=== PATIENT | female | born 1960 | race Caucasian/White ===

== ENCOUNTER 2022-12-05 12:49 | Outpatient (OUT) | payer OTHER, SELFPAY ==
--- NOTE | 2022-12-05 13:00 | MM_ITS ---
Patient: STEPH MCBRIDE Exam Date: 12/05/2022 : 1960 Gender:F Ordering : Non-Staff Physician Admission #: [id number] Family : CATRACHO YANG Order #: [id number] CLICK HERE TO VIEW EXAM RADIOLOGY REPORT PROCEDURE: MM TOMOSYNTHESIS SCREENING BI COMPARISON: MG MAMM SCREEN 3D LISA CAD, 11/15/2016. MG MAMM SCREEN 3D LISA CAD, 10/19/2021. INDICATIONS: Screening for malignant neoplasm Calculator Name NCI Breast Cancer Risk Assessment Tool 5 Year Breast Cancer Risk Not Reported. Lifetime Breast Cancer Risk Not Reported. Personal Breast Cancer No Personal Ovarian Cancer No Treatments None Family Cancers None LOCATION: [facility] BREAST COMPOSITION: Scattered areas fibroglandular density. FINDINGS: DIAGNOSTIC CATEGORY 2--BENIGN FINDING. NO CHANGE FROM COMPARISON. Scattered benign-appearing nodules are present. Scattered benign-appearing calcifications are present. Scattered benign-appearing lymph nodes are present. RIGHT BREAST: No significant suspicious finding. Stable nodular asymmetry upper outer quadrant. LEFT BREAST: No significant suspicious finding. RECOMMENDATIONS: ROUTINE MAMMOGRAM AND CLINICAL EVALUATION IN 12 MONTHS. PLEASE NOTE: A NORMAL MAMMOGRAM DOES NOT EXCLUDE THE POSSIBILITY OF BREAST CANCER. A CLINICALLY SUSPICIOUS PALPABLE LUMP SHOULD BE BIOPSIED. Dictated by: Alonso Avila MD on 12/06/2022 at 09:24 Approved by: Alonso Avila MD on 12/06/2022 at 09:29
== END 2022-12-05 12:50 | disposition home or self-care (01) ==
LOC: MAMMO 12:49
PROVIDERS: Visit Provider Nurse Practitioner Family
DX: Z12.31 Encounter for screening mammogram for malignant neoplasm of breast (principal)
CPT/HCPCS: 77063; 77067

== ENCOUNTER 2023-05-20 11:27 | Outpatient (OUT) | payer MEDICARE, SELFPAY ==
[2023-05-20 11:48] LABS: Basophils Absolute Auto 0.1 10^3/uL (0.0-0.1); Basophils Percent Auto 0.6 % (0.2-2.0); Eosinophils Absolute Auto 0.2 10^3/uL (0.0-0.7); Eosinophils Percent Auto 1.9 % (0.9-7.0); Hematocrit 47.9 % (36.0-48.0); Immature Granulocytes Abs Auto 0.07 10^3/uL (0.00-0.03); Immature Granulocytes Pct Auto 0.7 % (0.0-0.5); Lymphocytes Absolute Auto 2.5 10^3/uL (1.2-3.8); Lymphocytes Percent Auto 24.5 % (20.5-60.0); Mean Corpuscular HGB Conc 31.3 g/dL (29.9-35.2); Mean Corpuscular Hemoglobin 29.1 pg (26.7-34.0); Mean Platelet Volume 9.9 fL (9.5-13.5); Monocytes Absolute Auto 0.7 10^3/uL (0.3-0.8); Monocytes Percent Auto 6.6 % (1.7-12.0); Neutrophils Absolute Auto 6.6 10^3/uL (1.4-6.5); Neutrophils Percent Auto 65.7 % (43.0-75.0); Platelet Count 347 10^3/uL (150-450); Red Blood Count 5.15 10^6/uL (4.20-5.40); Red Cell Distribution Width 13.3 % (11.0-15.0); White Blood Count 10.1 10^3/uL (4.0-11.0)
[2023-05-20 13:12] LABS: Alanine Aminotransferase 26 U/L (14-59); Albumin Globulin Ratio 0.7; Albumin Level 3.4 g/dL (3.4-5.0); Alkaline Phosphatase 132 U/L (46-116); Anion Gap 12.3; Aspartate Amino Transferase 22 U/L (15-37); BUN Creatinine Ratio 16.8; Bilirubin Total 0.3 mg/dL (0.2-1.0); Calcium 8.9 mg/dL (8.5-10.1); Carbon Dioxide 25.4 mmol/L (21.0-32.0); Chloride 104 mmol/L (98-107); Chol HDL Ratio 3.9; Cholesterol 224 mg/dL (<=200); Estimated GFR (African America 55 (>=60); Estimated GFR (Non-African Ame 46 (>=60); Glucose 89 mg/dL (74-106); HDL Cholesterol 57 mg/dL (40-60); Potassium 3.7 mmol/L (3.5-5.1); Sodium 138 mmol/L (136-145); Thyroid Stimulating Hormone 0.738 uIU/mL (0.358-3.740); Total Protein 8.4 g/dL (6.4-8.2); Triglycerides 166 mg/dL (<=150); VLDL CHOLESTEROL 33.2 mg/dL
[2023-05-21 13:08] LABS: Triiodothyronine (T3) 113 ng/dL (71-180)
== END 2023-05-20 11:28 | disposition home or self-care (01) ==
LOC: LAB 11:31
PROVIDERS: PCP Nurse Practitioner Family; Visit Provider Nurse Practitioner Family
DX: Z00.00 Encounter for general adult medical examination without abnormal findings (principal); E03.9 Hypothyroidism, unspecified; E78.5 Hyperlipidemia, unspecified
CPT/HCPCS: 36415; 80053; 80061; 84436; 84443; 84480; 85025

== ENCOUNTER 2024-08-16 14:00 | Emergency (ER) | payer OTHER, SELFPAY ==
[2024-08-16 14:05] VITALS: BP 146/73; PULSE 78; TEMP 36.3; O2SAT 98; BMI 56.7
--- NOTE | 2024-08-16 14:23 | ED_ITS ---
HPI HPI - General Adult General Chief complaint: Ear Stated complaint: EAR PAIN AND CLOGGED UP Time Seen by Provider: 08/16/24 14:09 Source: patient and family Mode of arrival: walk-in Limitations: no limitations History of Present Illness HPI narrative: 64-year-old female presents to the emergency department for both ears being plugged. She thinks there might be too much wax in it and it has been like this for a week or 2 and getting somewhat worse. No drainage or fever. Related Data Allergies Allergy/AdvReac Type Severity Reaction Status Date / Time No Known Drug Allergies Allergy Verified 08/16/24 14:05 Opioid HPI Opioid Management Most Recent Opioid Data: No Data to Display Review of Systems ROS Narrative A ten point review of systems is negative except as noted above. PFSH PFSH Social History Little interest or pleasure in doing things: not at all Feeling down, depressed, or hopeless: not at all Exam Narrative Exam Narrative: Nurses note and vital signs reviewed and patient is not hypoxic. General: The patient appears well and in no apparent distress. Patient is resting comfortably on cart. Skin: Warm, dry, no pallor noted. There is no rash noted. Head: Normocephalic, atraumatic Eye: Normal conjunctiva, no drainage Ears, Nose, Mouth, and Throat: oral mucosa is moist. Nares patent. Both external canals have large amount of cerumen, obscuring the TM. Cardiovascular: Regular Rate and Rhythm Respiratory: Patient is in no distress, no accessory muscle use, lungs are clear to auscultation, no wheezing, rales or rhonchi Back: non-tender GI: Soft and nontender Musculoskeletal: The patient has no evidence of calf tenderness, no pitting edema, symmetrical pulses noted bilaterally Neurological: A&O, normal speech Psychiatric: Cooperative Constitutional Vital Signs, click to edit/add: Last Vital Signs Temp 97.4 F L 08/16/24 14:05 Pulse 78 08/16/24 14:05 Resp 18 08/16/24 14:05 BP 146/73 H 08/16/24 14:05 Pulse Ox 98 08/16/24 14:05 O2 Del Method Room Air 08/16/24 14:05 Course Vital Signs Vital signs: Vital Signs Temperature 97.4 F L 08/16/24 14:05 Pulse Rate 78 08/16/24 14:05 Respiratory Rate 18 08/16/24 14:05 Blood Pressure 146/73 H 08/16/24 14:05 Pulse Oximetry 98 08/16/24 14:05 Oxygen Delivery Method Room Air 08/16/24 14:05 Temperature 97.4 F L 08/16/24 14:05 Pulse Rate 78 08/16/24 14:05 Respiratory Rate 18 08/16/24 14:05 Blood Pressure 146/73 H 08/16/24 14:05 Pulse Oximetry 98 08/16/24 14:05 Oxygen Delivery Method Room Air 08/16/24 14:05 Medical Decision Making MDM Narrative Medical decision making narrative: Her ears have both been irrigated by nursing staff with good removal of cerumen. Repeat examination shows bilateral swelling in the external canal as well as a small amount of drainage and erythema. At this point she will be treated for otitis externa with Cortisporin. Treatment diagnosis and follow-up were discussed with the patient. Differential Diagnosis Differential Diagnosis: Cerumen impaction, otitis externa Discharge Plan Discharge Chief Complaint: Ear Clinical Impression: Bilateral impacted cerumen, Otitis externa Patient Disposition: Home, Self-Care Time of Disposition Decision: 15:26 Condition: Good Mode of Transportation: Private Vehicle Print Language: Romanian Instructions: Swimmer's Ear (ED) Additional Instructions: Prescription given for Cortisporin Referrals: IVETTE MAN [Primary Care Provider] - 1 week
--- OUTSIDE RECORDS SUMMARY | 2024-08-16 14:34 | XMS_ITS | CCD ---
Author Organization [facility] Care Team Providers Care Commercial Lending Assistant Name Role Phone MaryNaila roqueBlair Unavailable Mirian Ragsdale Unavailable SELF, REFERRED Referring Unavailable SELF, REFERRED Primary Care Unavailable LEILA LAZARO Attending Unavailable LEILA ALZARO Admitting Unavailable LEILA LAZARO Surgeon Unavailable [place] Procedure Practitioner Unavailab DORY Luna Attending Unavailable DORY SILVA Admitting Unavailable MISC, DR LUNA Primary Care Unavailable MISC, DR LUNA Admitting Unavailable MISC, DR LUNA Attending Unavailable MISC, DR LUNA Primary Care Unavailable MISC, DR LUNA Primary Care Unavailable REINECK, DR AP Dodge Attending Unavailabl e REINECK, DR AP Dodge Consulting Unavailabl e REINECK, DR AP Dodge Admitting Unavailabl e WEST, JOHNNY Rodgers Consulting Unavailable DORY SILVA Attending Unavailable DORY SILVA Admitting Unavailable MISC, DR LUNA Primary Care Unavailable ZIEBER, DR NIKI Andrea Consulting Unavailable SHIRADORY WAGNER Consulting Unavailable MISC, DR LUNA Admitting Unavailable MISC, DR LUNA Attending Unavailable MISC, DR LUNA Primary Care Unavailable SCHWRICARDO MIRIAN Consulting Unavailable IVETTE MAN Attending Unavailable IVETTE MAN Admitting Unavailable MAGDAIVETTE MICHEL Attending Unavailable IVETTE MAN Admitting Unavailable MAGDA, IVETTE Attending Unavailable IVETTE MAN Admitting Unavailable IVETTE MAN Attending Unavailable IVETTE MAN Admitting Unavailable Schwricardo TERRY Mirian Primary Care Provider DORY MARIN Attending Unavailable TJ BRAUN Attending Unavailable DORY MARIN Referring Unavailable DORY MARIN Attending Unavailable TJ BRAUN Attending Unavailable DORY MARIN Referring Unavailable JAUN BURNETT Attending Unavailable TJ BRAUN Attending Unavailable IVETTE MAN Attending Unavailable MAGDA, IVETTE Admitting Unavailable MAGDA, IVETTE Attending Unavailable MAGDA, IVETTE Admitting Unavailable MAGDA, IVETTE Attending Unavailable MAGDA, IVETTE Admitting Unavailable MAGDA, IVETTE Attending Unavailable MAGDA, IVETTE Admitting Unavailable Allergies Allergy Classification Reported Allergen(s) Allergy Type Date of Onset Reaction(s) Facility (9 sources) Lisinopril Drug Allergy angioedema [employer] Other Medications Current Medications Medication Drug Class(es) Dates Sig (Normalized) Sig (Original) [id number] 200 actuat albuterol 0.09 mg/actuat metered dose inhaler (20 sources) beta2-Adrenergic Agonist take 2 puff(s) by inhalation every four hours for wheezing albuterol HFA 90 mcg/act inhaler Inhale 2 puffs every 4 (four) hours if needed for wheezing Active take 2 puff(s) by in halation every four hours as needed Ventolin HFA 108 (90 Base) MCG/ACT 2 puffs as needed Inhalation every 4 hrs for 30 day(s) PRN Active amLODIPine 10 mg oral tablet (9 sources) Dihydropyridine Calcium Channel Nicole take 1 tablet by mouth once daily amLODIPine Besylate 10 MG TAKE 1 TABLET BY MOUTH EVERY DAY Orally for 90 days Active atomoxetine 100 mg oral capsule (16 sources) Norepinephrine Reuptake Inhibitor take 1 capsule by mouth twice daily Atomoxetine HCl 40 MG TAKE 1 CAPSULE BY MOUTH TWICE A DAY for 30 Not-Taking take 1 capsule by [facility] every twenty-four hours Atomoxetine HCl 100 MG 1 capsule in the morning Orally Once a day for 30 days Active Atomoxetine HCl 80 MG TAKE 1 CAPSULE BY MOUTH EVERY DAY IN THE MORNING FOR 30 DAYS for 90 Active atorvastatin 20 mg oral tablet (20 sources) HMG-CoA Reductase Inhibitor take 1 tablet by mouth once daily atorvastatin (Lipitor) 20 MG tablet Take 20 mg by mouth Daily Active Centrum Adults - (9 sources) Centrum Adults - as directed Orally Active esomeprazole 40 mg delayed release oral capsule (12 sources) Proton Pump Inhibitor take 1 capsule by mouth before mealtime esomeprazole (NexIUM) [address] capsule Take 40 mg by mouth in the morning. Take before meals. Do not open capsule. 1 capsule. Active fluticasone propionate 0.05 mg/actuat metered dose nasal spray (9 sources) Corticosteroid Start : 01-31 take 1 spray(s) nasal route once daily as needed Flonase Allergy Relief 50 MCG/ACT 1 spray in each nostril Nasally Once a day for 30 day(s) PRN Jan, Active hydroCHLOROthiazide 25 mg oral tablet (12 sources) Thiazide Diuretic take 1 tablet by mouth once daily hydroCHLOROthiazide (HYDRODiuril) 25 MG tablet Take 25 mg by mouth Daily Active hydroCHLOROthiazide 25 mg / triamterene 37.5 mg oral tablet (9 sources) Potassium-sparing Diuretic, Thiazide Diuretic take 1 tablet by mouth every twenty-four hours Triamterene-HCTZ 37.5-25 MG 1 tablet in the morning Orally Once a day for 90 days Active levothyroxine sodium 0.088 mg oral capsule (20 sources) l-Thyroxine take 1 capsule by mouth before mealtime levothyroxine (Tirosint) 88 MCG capsule Take 88 mcg by mouth in the morning. Take before meals. Active take 1 tablet by abe once daily in the morning Levothyroxine Sodium 125 MCG 1 tablet on an empty stomach in the morning Orally Once a day for 90 days Active linaclotide 0.072 mg oral capsule (12 sources) Guanylate Cyclase-C Agonist take 1 capsule by mouth once daily before mealtime linaCLOtide (Linzess) 72 MCG capsule Take 72 mcg by mouth in the morning. Take before meals. Do not crush or chew. 1 capsule at least 30 minutes before the first meal of the day on an empty stomach . Active lisinopril 5 mg oral tablet (9 sources) Angiotensin Converting Enzyme Inhibitor take 1 tablet by mouth every twenty-four hours Lisinopril 5 MG 1 tablet Orally Once a day for 90 days Active meclizine hydrochloride 12.5 mg oral tablet (20 sources) Antiemetic take 1 tablet by mouth three times daily as needed for dizziness meclizine (Antivert) 12.5 MG tablet Take 12.5 mg by mouth 3 (three) times a day as needed for dizziness Active take 2 tablets by mo [facility] every six hours as needed Meclizine HCl 12.5 mg 2 tablets Orally q6hrs PRN vertigo for 90 days PRN Active meloxicam 15 mg oral tablet (12 sources) Nonsteroidal Anti-inflammatory Drug Start: 11-07-2023 take 1 tablet by mouth once daily meloxicam (Mobic) 15 MG tablet Indications: Lumbar radiculopathy TAKE 1 TABLET BY MOUTH EVERY DAY 30 tablet 2 11/07/2023 Active OXcarbazepine 300 mg oral tablet (14 sources) Anti-epileptic Agent Start: 04-09-2024 End: 04-09-2025 OXcarbazepine (Trileptal) 300 MG tablet Indications: Nonintractable headache, unspecified chronicity pattern, unspecified headache type Take 1 tablet (300 mg) by mouth in the morning and 1 tablet (300 mg) before bedtime. TAKE 1 TABLET. 180 tablet 3 04/09/2024 04/09/2025 Active take 1 tablet by mouth in the mo rning OXcarbazepine (Trileptal) 300 MG tablet Take 300 mg by mouth in the morning and 300 mg before bedtime. TAKE 1 TABLET. Active pantoprazole 40 mg delayed release oral tablet (9 sources) Proton Pump Inhibitor take 1 tablet by mouth once daily Pantoprazole Sodium 40 MG TAKE 1 TABLET BY MOUTH EVERY DAY for 90 Active polysaccharide iron complex 150 mg oral capsule (9 sources) take 1 capsule by mouth every twenty-four hours Ferrex 150 150 MG 1 capsule Orally Once a day for 90 days Active rOPINIRole 0.25 mg oral tablet (9 sources) Nonergot Dopamine Agonist Start: 09-13-19 22 take 1 tablet by mouth once daily at bedtime rOPINIRole HCl 0.25 MG 1 tablet 1 to 3 hours before bedtime Orally Once a day for 30 day(s) Sep, Active tiZANidine 4 mg oral tablet (20 sources) Central alpha-2 Adrenergic Agonist Start: 05-13-20 24 take 0.5-1 tablets by mouth once daily in the morning, then take 1-0.5 tablets by mouth at bedtime tiZANidine (Zanaflex) 4 MG tablet Indications: Lumbar radiculopathy TAKE 1/2 TO 1 TABLET BY MOUTH EVERY MORNING & TAKE 1 & 1/2 TO 2 TABS AT BEDTIME 270 tablet 1 05/13/2024 Active Start: 11-18-2023 End: 04-09-2024 take 1 tablet by mouth in the morning tiZANidine (Zanaflex) 4 MG tablet Indications: Lumbar radiculopathy Take 1 tablet (4 mg) by mouth in the morning and 1 tablet (4 mg) before bedtime. 270 tablet 3 04/09/2024 Active Start: 02-12-2018 take 1 tablet by abe th every twelve hours tiZANidine HCl 4 MG 1 tablet as needed Orally BID for 30 days Feb, Active End: 04-09-2024 take 0.5-1 tablets by mouth once daily in the morning, then take 1-0.5 tablets by mouth at bedtime tiZANidine (Zanaflex) 4 MG capsule Take 4 mg by mouth Daily TAKE 1/2 TO 1 TABLET BY MOUTH EVERY MORNING & TAKE 1 & 1/2 TO 2 TABS AT BEDTIME 04/09/2024 Discontinued (Duplicate order) topiramate 50 mg oral tablet (20 sources) Start: 10-14-2023 End: 04-09-2024 take 2 tablets by mouth twice daily topiramate (Topamax) 25 MG tablet Indications: Migraine without status migrainosus, not intractable, unspecified migraine type (CMS/HCC) TAKE 2 TABLETS BY MOUTH TWICE A DAY 360 tablet 1 10/14/2023 04/09/2024 Discontinued (Duplicate order) Start: 09-24-2023 End: 04-09-2025 take 1 tablet by mouth in the morning topiramate 50 MG tablet Indications: Nonintractable headache, unspecified chronicity pattern, unspecified headache type Take 1 tablet by mouth in the morning and 1 tablet before bedtime. 180 tablet 3 04/09/2024 04/09/2025 Active take 1 tablet by abe th every twenty-four hours Topamax 25 MG 1 tablet Orally Once a day Active traZODone hydrochloride 100 mg oral tablet (20 sources) Serotonin Reuptake Inhibitor take 1 tablet by mouth at bedtime traZODone (Desyrel) 100 MG tablet Take 100 mg by mouth at bedtime Active take 1 tablet by abe th every twenty-four hours traZODone HCl 150 MG 1 tablet at bedtime Orally Once a day for 30 day(s) Active Vitamin B 12 500 MCG (9 sources) Vitamin B 12 500 MCG 1 lozenge Orally Once a day for 90 days Active Vitamin C 500 MG (9 sources) take 1 tablet by abe th once daily Vitamin C 500 MG 1 tablet Orally Once a day for 90 days Active Completed/Discontinued Medications Medication Drug Class(es) Dates Sig (Normalized) Sig (Original) bupivacaine hydrochloride 2.5 mg/ml injectable solution (12 sources) Amide Local Anesthetic Start: 05-19-2024 End: 05-19-2024 bupivacaine (Marcaine) 0.25 % injection 2.5 mg Start: 05-19-2024 End: 05-19-2024 bupivacaine (Marcaine) 0.25 % injection 2.5 mg Start: 05-19-2024 End: 05-19-2024 2.5 mg (1 mL), Injection, On ce, On Sat05/19/24 at 1545, For 1 dose Start: 05-19-2024 End: 05-19-2024 2.5 mg (1 mL), Injection, On ce, On Sat05/19/24 at 1545, For 1 dose Start: 02-26-2024 End: 02-26-2024 bupivacaine (Marcaine) 0.25 % injection 2.5 mg Start: 02-26-2024 End: 02-26-2024 bupivacaine (Marcaine) 0.25 % injection 2.5 mg Start: 02-26-2024 End: 02-26-2024 2.5 mg (1 mL), Injection, On ce, On Sat02/26/24 at 1430, For 1 dose Start: 02-26-2024 End: 02-26-2024 2.5 mg (1 mL), Injection, On ce, On Sat02/26/24 at 1430, For 1 dose Start: 02-13-2024 End: 02-13-2024 bupivacaine (Marcaine) 0.25 % injection 6 mL Start: 02-13-2024 End: 02-13-2024 6 mL, Injection, Once PRN Pr ocedure, Starting on Sat02/13/24 at 1430, For 1 dose dexamethasone phosphate 10 mg/ml injectable solution (8 sources) Corticosteroid Start: 05-19-2024 End: 05-19-2024 dexAMETHasone sod phos (Decadron) injection 10 mg Start: 05-19-2024 End: 05-19-2024 10 mg (1 mL), Injection, Onc e, On Sat05/19/24 at 1545, For 1 dose Start: 02-26-2024 End: 02-26-2024 dexAMETHasone sod phos (Deca dron) injection 10 mg Start: 02-26-2024 End: 02-26-2024 dexAMETHasone sod phos (Deca dron) injection 10 mg Start: 02-26-2024 End: 02-26-2024 10 mg (1 mL), Injection, Onc e, On Sat02/26/24 at 1430, For 1 dose Start: 02-26-2024 End: 02-26-2024 10 mg (1 mL), Injection, Onc e, On Sat02/26/24 at 1430, For 1 dose iohexol (OMNIPaque) 300 MG/M L injection 2 mL (8 sources) Start: 05-19-2024 End: 05-19-2024 iohexol (OMNIPaque) 300 MG/M L injection 2 mL Start: 05-19-2024 End: 05-19-2024 2 mL, Injection, Once in krish ging, Starting on Sat05/19/24 at 1542, For 1 dose Start: 02-26-2024 End: 02-26-2024 iohexol (OMNIPaque) 300 MG/M L injection 2 mL Start: 02-26-2024 End: 02-26-2024 2 mL, Injection, Once in krish ging, Starting on Sat02/26/24 at 1424, For 1 dose MiraLax 17 GM/SCOOP (9 sources) Start: 09-12-2021 take 17 g by mouth once daily MiraLax 17 GM/SCOOP 17 gm Orally Once a day for 30 day(s) Sep, Not-Taking Start: 09-12-2021 take 17 g by mouth once daily MiraLax 17 GM/SCOOP 17 gm Orally Once a day for 30 day(s) Sep, Active PrePLUS 27-1 MG (9 sources) take 1 tablet by abe th once daily PrePLUS 27-1 MG 1 tablet Orally Once a day Not-Taking take 1 tablet by mouth once chaparrita y PrePLUS 27-1 MG 1 tablet Orally Once a day Active Problems Active Problems Problem Classification Problem Date Documented Da te Episodic/Chronic Asthma (9 sources) Exacerbation of intermittent asthma; Translations: [Mild intermittent asthma with (acute) exacerbation] Chronic Attention-deficit, conduct, and disruptive behavior disorders (9 sources) Attention deficit hyperactivity disorder; Translations: [Attention-deficit hyperactivity disorder, unspecified type] Chronic Attention-deficit, conduct, and disruptive behavior disorders (2 sources) Attention-deficit hyperactivity disorder, unspecified type Onset: 2 Resolved: 2 Chronic Deficiency and other anemia (9 sources) Anemia due to chronic blood loss; Translations: [Iron deficiency anemia secondary to blood loss (chronic)] Chronic Disorders of lipid metabolism (11 sources) Mixed hyperlipidemia; Translations: [Mixed hyperlipidemia] Onset: 2 Resolved: 2 Chronic Esophageal disorders (18 sources) Gastroesophageal reflux disease; Translations: [Gastro-esophageal reflux disease without esophagitis] Chronic Essential hypertension (20 sources) Hypertensive disorder; Translations: [Essential (primary) hypertension] Onset: 2 Resolved: 2 Chronic Headache; including migraine (14 sources) Tension-type headache; Translations: [Tension-type headache, unspecified, not intractable] Onset: 4 09-23-2023 Chronic Headache; including migraine (2 sources) Headache; Translations: [Nonintractable headache, unspecified chronicity pattern, unspecified headache type] 04-09-2024 Episodic Malaise and fatigue (9 sources) Fatigue; Translations: [Chronic fatigue, unspecified] Chronic Mood disorders (9 sources) Moderate recurrent major depression; Translations: [Major depressive disorder, recurrent, moderate] Chronic Nausea and vomiting (9 sources) Regurgitation; Translations: [Vomiting, unspecified] Episodic Nutritional deficiencies (9 sources) Vitamin D deficiency; Translations: [Vitamin D deficiency, unspecified] Chronic Other connective tissue disease (9 sources) Fibromyalgia; Translations: [Fibromyalgia] Episodic Other gastrointestinal disorders (9 sources) Chronic idiopathic constipation; Translations: [Chronic idiopathic constipation] Chronic Other gastrointestinal disorders (9 sources) Constipation; Translations: [Constipation, unspecified] Episodic Other gastrointestinal disorders (9 sources) Dysphagia; Translations: [Dysphagia, unspecified] Episodic Other hereditary and degenerative nervous system conditions (20 sources) Restless legs; Translations: [Restless legs syndrome] Onset: 4 09-23-2023 Chronic Other hereditary and degenerative nervous system conditions (1 source) Restless legs syndrome; Translations: [RESTLESS LEGS SYNDROME] Onset: 2 Chronic Other nervous system disorders (9 sources) Peripheral nerve disease ; Translations: [Polyneuropathy, unspecified] Chronic Spondylosis; intervertebral disc disorders; other back problems (20 sources) Lumbar spondylosis; Translations: [Spondylosis without myelopathy or radiculopathy, lumbar region] Onset: 2 Resolved: 2 Chronic Spondylosis; intervertebral disc disorders; other back problems (20 sources) Radiculopathy, cervical region; Translations: [Neck pain] Onset: 2 Episodic Thyroid disorders (20 sources) Acquired hypothyroidism; Translations: [Hypothyroidism, unspecified] Onset: 2 Chronic Unclassified (2 sources) LOW BACK PAIN, UNSPECIFIED; Translations: [LOW BACK PAIN, UNSPECIFIED] Onset: 2 Past or Other Problems Problem Classification Problem Date Documented Da te Episodic/Chronic Other injuries and conditions due to external causes (1 source) History of falling; Translations: [HISTORY OF FALLING] Onset: 12-12-2021 Episodic Other screening for suspected conditions (not mental disorders or infectious disease) (1 source) Encounter for screening mammogram for malignant neoplasm of breast Onset: 09-21-2021 Resolved: 09-21-2021 Episodic Unclassified (1 source) LOW BACK PAIN, UNSPECIFIED; Translations: [LOW BACK PAIN, UNSPECIFIED] Onset: 12-07-2021 Results Test Name Value Interpretation Reference Range Facility CBC w/ Auto Diffon 5 Basophils/100 WBC (Bld) 0.8 % Normal 0.0-2.0 [facility] Comment on above: Performed By: #### 2 [id number] #### [facility] [address] [place] [address] Basophils/Leukocy ana maria Auto (Bld) [Pure # fraction] 0.1 E9/L Normal 0.0-0.2 [facility] Comment on above: Performed By: #### 2 [id number] #### [facility] [address] [place] [address] Eosinophils (Bld) [#/Vol] 0.4 E9/L Normal 0.0-0.5 [facility] Comment on above: Performed By: #### 2 [id number] #### [facility] [address] [place] [address] Eosinophils/100 WBC (Bld) 2.5 % Normal 0.0-8.0 [facility] Comment on above: Performed By: #### 2 [id number] #### [facility] [address] [place] [address] Erythrocyte distribution width (RBC) [Ratio] 13.6 % Normal 10.9-14.2 [facility] Comment on above: Performed By: #### 2 [id number] #### [facility] [address] [place] [address] Hematocrit (Bld) [Volume fraction] 48.2 % High 34.0-46.0 [facility] Comment on above: Performed By: #### 2 [id number] #### [facility] [address] [place] [address] Hemoglobin (Bld) [Mass/Vol] 15.9 g/dL Normal 12.0-16.0 [facility] Comment on above: Performed By: #### 2 [id number] #### [facility] [address] [place] [address] Lymphocytes (Bld) [#/Vol] 2.9 E9/L Normal 1.0-4.0 [facility] Comment on above: Performed By: #### 2 [id number] #### [facility] [address] [place] [address] Lymphocytes/100 WBC (Bld) 19.7 % Normal 14.0-50.0 [facility] Comment on above: Performed By: #### 2 [id number] #### [facility] [address] [place] [address] MCH (RBC) [Entitic mass] 29.6 pg Normal 27.0-34.0 [facility] Comment on above: Performed By: #### 2 [id number] #### [facility] [address] [place] [address] MCHC (RBC) [Mass/Vol] 33.0 g/dL Normal 31.4-36.0 [facility] Comment on above: Performed By: #### 2 [id number] #### [facility] [address] [place] [address] MCV (RBC) [Entitic vol] 89.5 fL Normal 80.0-100.0 [facility] Comment on above: Performed By: #### 2 [id number] #### [facility] [address] [place] [address] Monocytes (Bld) [#/Vol] 1.1 E9/L High 0.2-1.0 [facility] Comment on above: Performed By: #### 2 [id number] #### [facility] [address] [place] [address] Neutrophils (Bld) [#/Vol] 10.3 E9/L High 2.0-7.5 [facility] Comment on above: Performed By: #### 2 [id number] #### [facility] [address] [place] [address] Neutrophils/100 WBC (Bld) 69.7 % Normal 36.0-75.0 [facility] Comment on above: Performed By: #### 2 [id number] #### [facility] [address] [place] [address] Platelet 377.0 E9/L Normal 150.0-500.0 [facility] Comment on above: Performed By: #### 2 [id number] #### [facility] [address] [place] [address] Platelet mean volume (Bld) [Entitic vol] 9.3 fL Normal 6.4-10.8 [facility] Comment on above: Performed By: #### 2 [id number] #### [facility] [address] [place] [address] RBC (Bld) [#/Vol] 5.4 E12/L Normal 4.3-5.9 [facility] Comment on above: Performed By: #### 2 [id number] #### [facility] [address] [place] [address] WBC corrected for nucl RBC Auto (Bld) [#/Vol] 14.8 E9/L High 4.0-11.0 [facility] Comment on above: Performed By: #### 2 [id number] #### [facility] [address] [place] [address] T3 Totalon 05-30-2024 T3 [Mass/Vol] 118 ng/dL Invalid Interpretation Code [id number] [facility] Comment on above: Result Comment: Perf ormed at: [facility] [address] [id number] PhD Erik Ray Performed By: #### 1 [id number] #### [facility] [address] [place] [address] CBC w/ Auto Diffon 4 Basophils/100 WBC (Bld) 0.6 % Normal 0.0-2.0 [facility] Comment on above: Performed By: #### 2 [id number] #### [facility] [address] [place] [id number] Basophils/Leukocy ana maria Auto (Bld) [Pure # fraction] 0.1 E9/L Normal 0.0-0.2 [facility] Comment on above: Performed By: #### 2 [id number] #### [facility] [address] [place] [address] Eosinophils (Bld) [#/Vol] 0.3 E9/L Normal 0.0-0.5 [facility] Comment on above: Performed By: #### 2 [id number] #### [facility] [address] [place] [address] Eosinophils/100 WBC (Bld) 2.1 % Normal 0.0-8.0 [facility] Comment on above: Performed By: #### 2 [id number] #### [facility] [address] [place] [address] Erythrocyte distribution width (RBC) [Ratio] 13.7 % Normal 10.9-14.2 [facility] Comment on above: Performed By: #### 2 [id number] #### [facility] [address] [place] [address] Hematocrit (Bld) [Volume fraction] 46.5 % High 34.0-46.0 [facility] Comment on above: Performed By: #### 2 [id number] #### [facility] [address] [place] [address] Hemoglobin (Bld) [Mass/Vol] 15.3 g/dL Normal 12.0-16.0 [facility] Comment on above: Performed By: #### 2 [id number] #### [facility] [address] [place] [address] Lymphocytes (Bld) [#/Vol] 3.0 E9/L Normal 1.0-4.0 [facility] Comment on above: Performed By: #### 2 [id number] #### [facility] [address] [place] [address] Lymphocytes/100 WBC (Bld) 19.8 % Normal 14.0-50.0 [facility] Comment on above: Performed By: #### 2 [id number] #### [facility] [address] [place] [address] MCH (RBC) [Entitic mass] 30.0 pg Normal 27.0-34.0 [facility] Comment on above: Performed By: #### 2 [id number] #### [facility] [address] [place] [address] MCHC (RBC) [Mass/Vol] 33.0 g/dL Normal 31.4-36.0 [facility] Comment on above: Performed By: #### 2 [id number] #### [facility] [address] [place] [address] MCV (RBC) [Entitic vol] 91.1 fL Normal 80.0-100.0 [facility] Comment on above: Performed By: #### 2 [id number] #### [facility] [address] [place] [address] Monocytes (Bld) [#/Vol] 0.9 E9/L Normal 0.2-1.0 [facility] Comment on above: Performed By: #### 2 [id number] #### [facility] [address] [place] [address] Neutrophils (Bld) [#/Vol] 10.7 E9/L High 2.0-7.5 [facility] Comment on above: Performed By: #### 2 [id number] #### [facility] [address] [place] [address] Neutrophils/100 WBC (Bld) 71.5 % Normal 36.0-75.0 [facility] Comment on above: Performed By: #### 2 [id number] #### [facility] [address] [place] [address] Platelet mean volume (Bld) [Entitic vol] 8.7 fL Normal 6.4-10.8 [facility] Comment on above: Performed By: #### 2 [id number] #### [facility] [address] [place] [address] Platelets (Bld) [#/Vol] 316.0 E9/L Normal 150.0-500.0 [facility] Comment on above: Performed By: #### 2 [id number] #### [facility] [address] [place] [address] RBC (Bld) [#/Vol] 5.1 E12/L Normal 4.3-5.9 [facility] Comment on above: Performed By: #### 2 [id number] #### [facility] [address] [place] [address] WBC corrected for nucl RBC Auto (Bld) [#/Vol] 15.0 E9/L High 4.0-11.0 [facility] Comment on above: Result Comment: Bhavna pheral smear review performed. Performed By: #### 2 [id number] #### [facility] [address] [place] [address] CMPon 05-29-2024 Albumin [Mass/Vol] 4.3 g/dL Normal 3.3-5.0 [facility] Comment on above: Performed By: #### 2 [id number] #### [facility] [address] [place] [address] Albumin/Globulin (S) [Mass conc ratio] 1.1 Normal 1.1-2.2 [facility] Comment on above: Performed By: #### 2 [id number] #### [facility] [address] [place] [address] ALP [Catalytic activity/Vol] 111 Int._Unit/L High 21-98 [facility] Comment on above: Performed By: #### 2 [id number] #### [facility] [address] [place] [address] ALT No additional P-5'-P [Catalytic activity/Vol] 35 Int._Unit/L Normal 6-46 [facility] Comment on above: Performed By: #### 2 [id number] #### [facility] [address] [place] [address] Anion gap [Moles/Vol] 16 mmol/L Normal 6-16 [facility] Comment on above: Performed By: #### 2 [id number] #### [facility] [address] [place] [address] AST [Catalytic activity/Vol] 20 Int._Unit/L Normal 5-43 [facility] Comment on above: Performed By: #### 2 [id number] #### [facility] [address] [place] [address] Bilirubin [Mass/Vol] 0.5 mg/dL Normal 0.0-1.1 [facility] Comment on above: Performed By: #### 2 [id number] #### [facility] [address] [place] [address] Calcium [Mass/Vol] 9.5 mg/dL Normal 8.9-11.1 [facility] Comment on above: Performed By: #### 2 441007 #### [facility] [address] [place] [address] Chloride [Moles/Vol] 106 mmol/L Normal 101-111 [facility] Comment on above: Performed By: #### 2 [id number] #### [facility] [address] [place] [address] CO2 [Moles/Vol] 23 mmol/L Normal 21-[address] [facility] Comment on above: Performed By: #### 2 [id number] #### [facility] [address] [place] [address] Creatinine [Mass/Vol] 1.0 mg/dL Normal 0.5-1.3 [facility] Comment on above: Performed By: #### 2 493546 #### [facility] [address] [place] [address] Globulin (S) [Mass/Vol] 3.8 g/dL Normal 1.4-4.0 [facility] Comment on above: Performed By: #### 2 [id number] #### [facility] [address] [place] [address] Glucose [Mass/Vol] 107 mg/dL Normal 55-199 [facility] Comment on above: Performed By: #### 2 [id number] #### [facility] [address] [place] [address] Potassium [Moles/Vol] 4.4 mmol/L Normal 3.5-5.3 [facility] Comment on above: Performed By: #### 2 [id number] #### [facility] [address] [place] [address] Protein [Mass/Vol] 8.1 g/dL High 6.0-7.8 [facility] Comment on above: Performed By: #### 2 745940 #### [facility] [address] [place] [address] Sodium [Moles/Vol] 141 mmol/L Normal 135-145 [facility] Comment on above: Performed By: #### 2 [id number] #### [facility] [address] [place] [address] Urea nitrogen [Mass/Vol] 23 mg/dL High 5-21 [facility] Comment on above: Performed By: #### 2 771770 #### [facility] [address] [place] [address] Urea nitrogen/Creatini ne [Mass ratio] 23 No Units High 10-20 [facility] Comment on above: Performed By: #### 2 [id number] #### [facility] [address] [place] [address] DliN0twz 05-29-2024 HbA1c (Bld) [Mass fraction] 5.5 % Normal <=5.9 [facility] Comment on above: Performed By: #### 7 [id number] #### [facility] [address] [place] [address] Lipid Panelon 05-29-2024 Cholesterol [Mass/Vol] 236 mg/dL High 120-200 [facility] Comment on above: Performed By: #### 2 [id number] #### [facility] [address] [place] [address] Cholesterol in HDL [Mass/Vol] 51 mg/dL Invalid Interpretation Code [facility] Comment on above: Result Comment: '>= 60 LOW RISK' '<= 40 HIGH RISK' Performed By: #### 2 [id number] #### [facility] [address] [place] [address] Cholesterol in LDL [Mass/Vol] 162 mg/dL High <=129 [facility] Comment on above: Performed By: #### 2 794007 #### [facility] [address] [place] [address] Cholesterol in VLDL [Mass/Vol] 34 mg/dL Normal 7-40 [facility] Comment on above: Performed By: #### 2 612782 #### [facility] [address] [place] [address] Triglyceride [Mass/Vol] 168 mg/dL High <=149 [facility] Comment on above: Performed By: #### 2 [id number] #### [facility] [address] [place] [address] T4 & TSHon 05-29-2024 TSH Qn 1.65 m[IU]/L Normal 0.34-5.60 [facility] Comment on above: Performed By: #### 1 [id number] #### [facility] [address] [place] [address] T4 [Mass/Vol] 14.6 microgram/dL High 4.6-9.1 [facility] Comment on above: Performed By: #### 1 [id number] #### [facility] [address] [place] [address] eGFRon 05-29-2024 eGFR 62 mL/min/1.73 m2 Normal >=59 [facility] Comment on above: Performed By: #### 1 [id number] #### [facility] [address] [place] [address] .Thyroglobulin by IMAon 11-09 Thyroglobulin [Mass/Vol] 6.8 ng/mL Invalid Interpretation Code 1.5-38.5 [facility] Comment on above: Result Comment: Acco rding to the National Academy of Clinical Biochemistry, the reference interval for Thyroglobulin (TG) should be related to euthyroid patients and not for patients who underwent thyroidectomy. TG reference intervals for these patients depend on the residual mass of the thyroid tissue left after surgery. Establishing a post-operative baseline is recommended. The assay limit of quantitation is 0.1 ng/mL Thyroglobulin measured by [facility] Performed at: [facility] [id number] PhD Erik Ray Performed By: #### 7 [id number] #### [facility] [address] [place] [address] T3 Freeon 11-28-2023 Free T3 [Mass/Vol] 2.8 pg/mL Invalid Interpretation Code 2.0-4.4 [facility] Comment on above: Result Comment: Perf ormed at: [facility] [address] [id number] [id number] PhD Erik Ray Performed By: #### 2 [id number] #### [facility] [address] [place] [address] T3 Reverseon 11-28-2023 T3.reverse [Mass/Vol] 24.9 ng/dL High 9.2-24.1 [facility] Comment on above: Result Comment: This test was developed and its performance characteristics determined by [facility]. It has not been cleared or approved by the Food and Drug Administration. Performed at: [address] [id number] MD Gavin Conteh Performed By: #### 4 [id number] #### [facility] [address] [place] [address] T3 Totalon 11-28-2023 T3 [Mass/Vol] 124 ng/dL Invalid Interpretation Code 71-180 [facility] Comment on above: Result Comment: Perf ormed at: [address] [id number] PhD Erik Ray Performed By: #### 1 [id number] #### [facility] [address] [place] [address] TgAb+Thyroglobulinon 024 Thyroglobulin Ab Qn [IU]/mL Invalid Interpretation Code 0.0-0.9 [facility] Comment on above: Result Comment: Thyr oglobulin Antibody measured by [employer] It should be noted that the presence of thyroglobulin antibodies may not be pathogenic nor diagnostic, especially at very low levels. The assay playground supervisor has found that four percent of individuals without evidence of thyroid disease or autoimmunity will have positive TgAb levels up to 4 IU/mL. Performed at: [address] [id number] [phone] PhD Erik Ray Performed By: #### 7 [id number] #### [facility] [address] [place] [address] Thyroid Perox.tpo Abon 11-27 TPO Ab Qn 19 International_Unit/mL Invalid Interpretation Code 0-34 [facility] Comment on above: Result Comment: Perf ormed at: [address] [id number] PhD Erik Ray Performed By: #### 1 [id number] #### [facility] [address] [place] [address] [place] [address] Thyrotropin Receptor Antibod y, Serumon 11-28-2023 TSH receptor Ab Qn (S) <1.10 Invalid Interpretation Code 0.00-1.75 [facility] Comment on above: Result Comment: Perf ormed at: [facility] [address] [id number] MD Gavin Conteh Performed By: #### 1 [id number] #### [facility] [address] [place] [address] CMPon 11-20-2023 Albumin [Mass/Vol] 4.6 g/dL Normal 3.3-5.0 [facility] Comment on above: Performed By: #### 2 [id number] #### [facility] [address] [place] [address] Albumin/Globulin (S) [Mass conc ratio] 1.2 Normal 1.1-2.2 [facility] Comment on above: Performed By: #### 2 [id number] #### [facility] [address] [place] [address] ALP [Catalytic activity/Vol] 112 Int._Unit/L High 21-98 [facility] Comment on above: Performed By: #### 2 [id number] #### [facility] [address] [place] [address] ALT No additional P-5'-P [Catalytic activity/Vol] 21 Int._Unit/L Normal 6-46 [facility] Comment on above: Performed By: #### 2 [id number] #### [facility] [address] [place] [address] Anion gap [Moles/Vol] 16 mmol/L Normal 6-16 [facility] Comment on above: Performed By: #### 2 [id number] #### [facility] [address] [place] [address] AST [Catalytic activity/Vol] 17 Int._Unit/L Normal 5-43 [facility] Comment on above: Performed By: #### 2 [id number] #### [facility] [address] [place] [address] Bilirubin [Mass/Vol] 0.4 mg/dL Normal 0.0-1.1 [facility] Comment on above: Performed By: #### 2 [id number] #### [facility] [address] [place] [address] Calcium [Mass/Vol] 10.0 mg/dL Normal 8.9-11.1 [facility] Comment on above: Performed By: #### 2 [id number] #### [facility] [address] [place] [address] Chloride [Moles/Vol] 104 mmol/L Normal 101-111 [facility] Comment on above: Performed By: #### 2 996452 #### [facility] [address] [place] [address] CO2 [Moles/Vol] 22 mmol/L Normal 21-[address] [facility] Comment on above: Performed By: #### 2 967521 #### [facility] [address] [place] [address] Creatinine [Mass/Vol] 1.2 mg/dL Normal 0.5-1.3 [facility] Comment on above: Performed By: #### 2 298821 #### [facility] [address] [place] [address] Globulin (S) [Mass/Vol] 3.9 g/dL Normal 1.4-4.0 [facility] Comment on above: Performed By: #### 2 684369 #### [facility] [address] [place] [address] Glucose [Mass/Vol] 86 mg/dL Normal 55-199 [facility] Comment on above: Performed By: #### 2 [id number] #### [facility] [address] [place] [address] Potassium [Moles/Vol] 4.4 mmol/L Normal 3.5-5.3 [facility] Comment on above: Performed By: #### 2 [id number] #### [facility] [address] [place] [address] Protein [Mass/Vol] 8.5 g/dL High 6.0-7.8 [facility] Comment on above: Performed By: #### 2 294287 #### [facility] [address] [place] [address] Sodium [Moles/Vol] 138 mmol/L Normal 135-145 [facility] Comment on above: Performed By: #### 2 [id number] #### [facility] [address] [place] [address] Urea nitrogen [Mass/Vol] 21 mg/dL Normal 5-21 [facility] Comment on above: Performed By: #### 2 [id number] #### [facility] [address] [place] [address] Urea nitrogen/Creatini ne [Mass ratio] 18 No Units Normal 10-20 [facility] Comment on above: Performed By: #### 2 [id number] #### [facility] [address] [place] [address] Physician Orderon 11-20-2023 Physician Order [id number] FF Normal [facility] T4 & TSHon 11-20-2023 TSH Qn 3.84 m[IU]/L Normal 0.34-5.60 [facility] Comment on above: Performed By: #### 1 [id number] #### [facility] [address] [place] [address] T4 [Mass/Vol] 14.6 microgram/dL High 4.6-9.1 [facility] Comment on above: Performed By: #### 1 [id number] #### [facility] [address] [place] [address] eGFRon 11-20-2023 eGFR 50 mL/min/1.73 m2 Low >=59 [facility] Comment on above: Order Comment: Order added by Discern Expert. Performed By: #### 1 [id number] #### [facility] [address] [place] [address] Insulin Lvlon 11-17-2023 Insulin Qn 12.2 u[IU]/mL Invalid Interpretation Code 2.6-24.9 [facility] Comment on above: Result Comment: Perf ormed at: [place] [id number] [place], [place] [id number] PhD Erik Ray Performed By: #### 1 [id number] #### [facility] [address] [place] [address] T3 Totalon 11-17-2023 T3 [Mass/Vol] 111 ng/dL Invalid Interpretation Code 71-180 [facility] Comment on above: Result Comment: Perf ormed at: [address] [id number] PhD Erik Ray Performed By: #### 1 [id number] #### [facility] [address] [place] [address] CMPon 11-15-2023 Albumin [Mass/Vol] 4.2 g/dL Normal 3.3-5.0 [facility] Comment on above: Performed By: #### 2 [id number] #### [facility] [address] [place] [address] Albumin/Globulin (S) [Mass conc ratio] 1.2 Normal 1.1-2.2 [facility] Comment on above: Performed By: #### 2 [id number] #### [facility] [address] [place] [address] ALP [Catalytic activity/Vol] 98 Int._Unit/L Normal 21-98 [facility] Comment on above: Performed By: #### 2 [id number] #### [facility] [address] [place] [address] ALT No additional P-5'-P [Catalytic activity/Vol] 25 Int._Unit/L Normal 6-46 [facility] Comment on above: Performed By: #### 2 [id number] #### [facility] [address] [place] [address] Anion gap [Moles/Vol] 15 mmol/L Normal 6-16 [facility] Comment on above: Performed By: #### 2 [id number] #### [facility] [address] [place] [address] AST [Catalytic activity/Vol] 18 Int._Unit/L Normal 5-43 [facility] Comment on above: Performed By: #### 2 [id number] #### [facility] [address] [place] [address] Bilirubin [Mass/Vol] 0.5 mg/dL Normal 0.0-1.1 [facility] Comment on above: Performed By: #### 2 [id number] #### [facility] [address] [place] [address] Calcium [Mass/Vol] 9.2 mg/dL Normal 8.9-11.1 [facility] Comment on above: Performed By: #### 2 [id number] #### [facility] [address] [place] [address] Chloride [Moles/Vol] 104 mmol/L Normal 101-111 [facility] Comment on above: Performed By: #### 2 359992 #### [facility] [address] [place] [address] CO2 [Moles/Vol] 25 mmol/L Normal 21-[address] [facility] Comment on above: Performed By: #### 2 [id number] #### [facility] [address] [place] [address] Creatinine [Mass/Vol] 1.2 mg/dL Normal 0.5-1.3 [facility] Comment on above: Performed By: #### 2 [id number] #### [facility] [address] [place] [address] Globulin (S) [Mass/Vol] 3.4 g/dL Normal 1.4-4.0 [facility] Comment on above: Performed By: #### 2 [id number] #### [facility] [address] [place] [address] Glucose [Mass/Vol] 79 mg/dL Normal 55-199 [facility] Comment on above: Performed By: #### 2 284209 #### [facility] [address] [place] [address] Potassium [Moles/Vol] 4.6 mmol/L Normal 3.5-5.3 [facility] Comment on above: Performed By: #### 2 681214 #### [facility] [address] [place] [address] Protein [Mass/Vol] 7.6 g/dL Normal 6.0-7.8 [facility] Comment on above: Performed By: #### 2 473536 #### [facility] [address] [place] [address] Sodium [Moles/Vol] 139 mmol/L Normal 135-145 [facility] Comment on above: Performed By: #### 2 [id number] #### [facility] [address] [place] [address] Urea nitrogen [Mass/Vol] 21 mg/dL Normal 5-21 [facility] Comment on above: Performed By: #### 2 989399 #### [facility] [address] [place] [address] Urea nitrogen/Creatini ne [Mass ratio] 18 No Units Normal 10-20 [facility] Comment on above: Performed By: #### 2 [id number] #### [facility] [address] [place] [address] Lipid Panelon 11-15-2023 Cholesterol [Mass/Vol] 235 mg/dL High 120-200 [facility] Comment on above: Performed By: #### 2 842372 #### [facility] [address] [place] [address] Cholesterol in HDL [Mass/Vol] 44 mg/dL Invalid Interpretation Code [facility] Comment on above: Result Comment: '>= 60 LOW RISK' '<= 40 HIGH RISK' Performed By: #### 2 [id number] #### [facility] [address] [place] [address] Cholesterol in LDL [Mass/Vol] 153 mg/dL High <=129 [facility] Comment on above: Performed By: #### 2 737333 #### [facility] [address] [place] [address] Cholesterol in VLDL [Mass/Vol] 43 mg/dL High 7-40 [facility] Comment on above: Performed By: #### 2 [id number] #### [facility] [address] [place] [address] Triglyceride [Mass/Vol] 215 mg/dL High <=149 [facility] Comment on above: Performed By: #### 2 102152 #### [facility] [address] [place] [address] Physician Orderon 11-15-2023 Physician Order [id number] FF Normal [facility] T4 & TSHon 11-15-2023 TSH Qn 3.91 m[IU]/L Normal 0.34-5.60 [facility] Comment on above: Performed By: #### 1 [id number] #### [facility] [address] [place] [address] T4 [Mass/Vol] 13.2 microgram/dL High 4.6-9.1 [facility] Comment on above: Performed By: #### 1 [id number] #### [facility] [address] [place] [address] eGFRon 11-15-2023 eGFR 50 mL/min/1.73 m2 Low >=59 [facility] Comment on above: Order Comment: Order added by Discern Expert. Performed By: #### 1 [id number] #### [facility] [address] [place] [address] TESTOSTERONE, FREE,DIRECT, T OTALon 04-09-2022 Free Testosterone(Dire ct) <0.2 Normal 0.0-4.2 [facility] Comment on above: Result Comment: Perf ormed at: BN Performed By: #### T ESTFRD #### [facility] [address] [address] [address] Suni Tejada Testosterone [Mass/Vol] ng/dL Critically low 3-67 [facility] Comment on above: Result Comment: Perf ormed at: CB Performed By: #### T ESTFRD #### [facility] [address] [place] [address] Dr. Suni Tejada CBC AUTO DIFFon 04-05-2022 BASO # 0.0 103/ul Normal 0.0-0.1 [facility] Comment on above: Performed By: #### C BC #### [facility] [address] [place] [address] Dr. Suni Tejada Basophils/100 WBC (Bld) 0.1 % Critically low 0.2-2.0 [facility] Comment on above: Performed By: #### C BC #### [facility] [address] [place] [address] Dr. Suni Tejada EO # 0.0 103/ul Normal 0.0-0.7 [facility] Comment on above: Performed By: #### C BC #### [facility] [address] [place] [address] Dr. Suni Tejada Eosinophils/100 WBC (Bld) 0.1 % Critically low 0.9-7.0 [facility] Comment on above: Performed By: #### C BC #### [facility] [address] [place] [address] Dr. Suni Tejada Erythrocyte distribution width (RBC) [Ratio] 13.0 % Normal 11.0-15.0 [facility] Comment on above: Performed By: #### C BC #### [facility] [address] [place] [address] Dr. Suni Tejada Hematocrit (Bld) [Volume fraction] 46.2 % Normal 36.0-48.0 [facility] Comment on above: Performed By: #### C BC #### [facility] [address] [place] [address] Dr. Suni Tejada Hemoglobin (Bld) [Mass/Vol] 14.5 g/dL Normal 12.0-16.0 [facility] Comment on above: Performed By: #### C BC #### [facility] [address] [place] [address] Dr. Suni Tejada IG # 0.09 10e3/ul Critically high 0.00-0.03 [facility] Comment on above: Performed By: #### C BC #### [facility] [address] [place] [address] Dr. Suni Tejada IG % 0.6 % Critically high 0.0-0.5 [facility] Comment on above: Performed By: #### C BC #### [facility] [address] [place] [address] Dr. Suni Tejada LYMPH # 2.1 103/ul Normal 1.2-3.8 [facility] Comment on above: Performed By: #### C BC #### [facility] [address] [place] [address] Dr. Suni Tejada Lymphocytes/100 WBC (Bld) 12.8 % Critically low 20.5-60.0 [facility] Comment on above: Performed By: #### C BC #### [facility] [address] [place] [address] Dr. Suni Tejada MANUAL DIFF REQ NO Normal [facility] Comment on above: Performed By: #### C BC #### [facility] [address] [place] [address] Dr. Suni Tejada MCH (RBC) [Entitic mass] 28.7 pg Normal 26.7-34.0 [facility] Comment on above: Performed By: #### C BC #### [facility] [address] [place] [address] Dr. Suni Tejada MCHC (RBC) [Mass/Vol] 31.4 g/dL Normal 29.9-35.2 [facility] Comment on above: Performed By: #### C BC #### [facility] [address] [place] [address] Dr. Suni Tejada MCV (RBC) [Entitic vol] 91.3 fL Normal 81.0-99.0 [facility] Comment on above: Performed By: #### C BC #### [facility] [address] [place] [address] Dr. Suni Tejada MONO # 0.9 103/ul Critically high 0.3-0.8 [facility] Comment on above: Performed By: #### C BC #### [facility] [address] [place] [address] Dr. Suni Tejada Monocytes/100 WBC (Bld) 5.5 % Normal 1.7-12.0 [facility] Comment on above: Performed By: #### C BC #### [facility] [address] [place] [address] Dr. Suni Tejada NEUT # 13.1 103/ul Critically high 1.4-6.5 [facility] Comment on above: Performed By: #### C BC #### [facility] [address] [place] [address] Dr. Suni Tejada Neutrophils/100 WBC (Bld) 80.9 % Critically high 43.0-75.0 [facility] Comment on above: Performed By: #### C BC #### [facility] [address] [place] [address] Dr. Suni Tejada Platelet mean volume (Bld) [Entitic vol] 9.8 fL Normal 9.5-13.5 [facility] Comment on above: Performed By: #### C BC #### [facility] [address] [place] [address] Dr. Suni Tejada PLT 351 103/ul Normal 150-450 [facility] Comment on above: Performed By: #### C BC #### [facility] [address] [place] [address] Dr. Suni Tejada RBC 5.06 106/ul Normal 4.20-5.40 [facility] Comment on above: Performed By: #### C BC #### [facility] [address] [place] [address] Dr. Suni Tejada WBC 16.2 103/ul Critically high 4.0-11.0 The [facility] Comment on above: Performed By: #### C BC #### [facility] [address] [place] [address] Dr. Suni Tejada FREE T4on 04-05-2022 Free T4 [Mass/Vol] 0.97 ng/dL Normal 0.76-1.46 [facility] Comment on above: Performed By: #### F T4, FETIBC #### [facility] [address] [place] [address] Dr. Suni Tejada IRON AND TIBCon 04-05-2022 % SATURATION 29.0 % Normal [facility] Comment on above: Performed By: #### F T4, FETIBC #### [facility] [address] [address] [address] Suni Tejada Iron [Mass/Vol] 97.0 ug/dL Normal 50.0-170.0 [facility] Comment on above: Performed By: #### F T4, FETIBC #### [facility] [address] [place] [address] Dr. Suni Tejada TIBC DIRECT 335.0 ug/dL Normal 250.0-450.0 The [facility] Comment on above: Performed By: #### F T4, FETIBC #### [facility] [address] [place] [address] Dr. Suni Tejada LIPID PROFILEon 04-05-2022 CHOL-HDL RATIO NORM SEE BELOW Normal [facility] Comment on above: Result Comment: 3.3 - 4.4 LOW RISK 4.4 - 7.1 AVERAGE RISK 7.1 - 11.0 MODERATE RISK >11.0 HIGH RISK Performed By: #### L IPID, CMP #### [facility] [address] [place] [address] Dr. Suni Tejada Cholesterol [Mass/Vol] 254 mg/dL Critically high <=200 [facility] Comment on above: Performed By: #### L IPID, CMP #### [facility] [address] [place] [address] Dr. Suni Tejada Cholesterol in HDL [Mass/Vol] 56 mg/dL Normal 40-60 [facility] Comment on above: Performed By: #### L IPID, CMP #### [facility] [address] [place] [address] Dr. Suni Tejada Cholesterol in LDL [Mass/Vol] 174.0 mg/dL Normal [facility] Comment on above: Performed By: #### L IPID, CMP #### [facility] [address] [address] [address] Suni Tejada Cholesterol.total /Cholesterol in HDL [Mass ratio] 4.5 {ratio} Normal [facility] Comment on above: Performed By: #### L IPID, CMP #### [facility] [address] [address] [address] Suni Tejada HDL NORMAL > or = 60 mg/dl - LO W CARDIOVASCULAR RISK <40 mg/dl - HIGH CARDIOVASCULAR RISK Normal [facility] Comment on above: Performed By: #### L IPID, CMP #### [facility] [address] [address] [address] Suni Tejada LDL CALC NORMAL SEE BELOW Normal [facility] Comment on above: Result Comment: <100 mg/dl OPTIMAL 100 - 129 mg/dl NEAR OR ABOVE OPTIMAL 130 - 159 mg/dl BORDERLINE HIGH 160 - 189 mg/dl HIGH >190 mg/dl VERY HIGH Performed By: #### L IPID, CMP #### [facility] [address] [address] [address] Suni Tejada Triglyceride [Mass/Vol] 120 mg/dL Normal <=150 [facility] Comment on above: Performed By: #### L IPID, CMP #### [facility] [address] [address] [address] Suni Tejada VLDL CALC 24.0 mg/dL Normal [facility] Comment on above: Performed By: #### L IPID, CMP #### [facility] [address] [address] [address] Suni Tejada PROF 14(COMP METB)on 022 Albumin [Mass/Vol] 3.8 g/dL Normal 3.4-5.0 [facility] Comment on above: Performed By: #### L IPID, CMP #### [facility] [address] [address] [address] Suni Tejada Albumin/Globulin [Mass ratio] 0.9 {ratio} Normal [facility] Comment on above: Performed By: #### L IPID, CMP #### [facility] [address] [address] [address] Suni Tejada ALP [Catalytic activity/Vol] 106 U/L Normal 46-116 [facility] Comment on above: Performed By: #### L IPID, CMP #### [facility] [address] [address] [address] Suni Tejada ALT [Catalytic activity/Vol] 25 U/L Normal 14-59 [facility] Comment on above: Performed By: #### L IPID, CMP #### [facility] [address] [address] [address] Suni Tejada Anion gap [Moles/Vol] 12.6 mmol/L Normal [facility] Comment on above: Performed By: #### L IPID, CMP #### [facility] [address] [address] [address] Suni Tejada AST [Catalytic activity/Vol] 14 U/L Critically low 15-37 [facility] Comment on above: Performed By: #### L IPID, CMP #### [facility] [address] [address] [address] Suni Tejada Bilirubin [Mass/Vol] 0.2 mg/dL Normal 0.2-1.0 The [facility] Comment on above: Performed By: #### L IPID, CMP #### [facility] [address] [address] [address] Suni Tejada Calcium [Mass/Vol] 9.2 mg/dL Normal 8.5-10.1 [facility] Comment on above: Performed By: #### L IPID, CMP #### [facility] [address] [address] [address] Suni Tejada Chloride [Moles/Vol] 105 mmol/L Normal 98-107 [facility] Comment on above: Performed By: #### L IPID, CMP #### [facility] [address] [address] [address] Suni Tejada CO2 [Moles/Vol] 24.2 mmol/L Normal 21.0-32.0 The [facility] Comment on above: Performed By: #### L IPID, CMP #### [facility] [address] [address] [address] Suni Tejada Creatinine [Mass/Vol] 1.21 mg/dL Critically high 0.55-1.02 [facility] Comment on above: Performed By: #### L IPID, CMP #### [facility] [address] [address] [address] Suni Tejada EGFR-AF [place] 55 mL/min/1.73m2 Critically low >=60 [facility] Comment on above: Performed By: #### L IPID, CMP #### [facility] [address] [address] [address] Suni Tejada EGFR-NON AF [place] 45 mL/min/1.73m2 Critically low >=60 [facility] Comment on above: Performed By: #### L IPID, CMP #### [facility] [address] [address] [address] Suni Tejada Globulin (S) [Mass/Vol] 4.2 g/dL Normal [facility] Comment on above: Performed By: #### L IPID, CMP #### [facility] [address] [address] [address] Suni Tejada Glucose [Mass/Vol] 91 mg/dL Normal 74-106 [facility] Comment on above: Performed By: #### L IPID, CMP #### [facility] [address] [address] [address] Suni Tejada Potassium [Moles/Vol] 3.8 mmol/L Normal 3.5-5.1 [facility] Comment on above: Performed By: #### L IPID, CMP #### [facility] [address] [address] [address] Suni Tejada Protein [Mass/Vol] 8.0 g/dL Normal 6.4-8.2 [facility] Comment on above: Performed By: #### L IPID, CMP #### [facility] [address] [address] [address] Suni Tejada Sodium [Moles/Vol] 138 mmol/L Normal 136-145 [facility] Comment on above: Performed By: #### L IPID, CMP #### [facility] [address] [place], [place] [address] Dr. Suni Tejada Urea nitrogen [Mass/Vol] 26.0 mg/dL Critically high 7.0-18.0 [facility] Comment on above: Performed By: #### L IPID, CMP #### [facility] [address] [place], [place] [address] Dr. Suni Tejada Urea nitrogen/Creatini ne [Mass ratio] 21.5 mg/mg Normal [facility] Comment on above: Performed By: #### L IPID, CMP #### [facility] [address] [place], [place] [address] Dr. Suni Tejada MRI CSPINE WO CONon 12-16-19 MRI CSPINE WO CON EXAMINATION: MRI CSP INE WO CON HISTORY: Cervical radiculopathy ; chronic cervical and bilateral arm pain COMPARISON: No relevant comparison available. TECHNIQUE: A variety of imaging planes and parameters were utilized for visualization of suspected pathology. FINDINGS: CRANIOCERVICAL AREA: Normal foramen magnum with no Chiari malformation. PARASPINAL AREA: Normal with no visible mass. BONES: No fracture, pars defect, or osseous lesion. CORD: Normal caliber, contour, and signal intensity. CERVICAL DISC LEVELS: C2-C3: Early degenerative disc disease is present without focal protrusion or neural impingement. C3-C4: Marked left, mild right foramen narrowing. No significant central canal narrowing. Mild diffuse disc bulging without disc height reduction. Uncovertebral joint spurring and moderate left degenerative facet arthropathy. C4-C5: Early degenerative disc disease is present without focal protrusion or neural impingement. C5-C6: Early degenerative disc disease is present without focal protrusion or neural impingement. C6-C7: Early degenerative disc disease is present without focal protrusion or neural impingement. C7-T1:. Early degenerative disc disease is present without focal protrusion or neural impingement. IMPRESSION: 1. C3-C4 marked left and mild right neural foramen narrowing due to degenerative facet arthropathy and uncovertebral joint spurring. Mild degenerative disc disease. Electronically authenticated by: NIKI ADAMES Date: 2021-12-15 09:09 Normal [facility] BASIC METABOLIC PANELon 09-1 1-2021 Calcium [Mass/Vol] 9.1 mg/dL Normal 8.6-10.3 [facility] [place] [facility] Comment on above: Order Comment: No: D o not add to previous draw Performed By: #### 0 0071, [id number] #### [facility] [address] [place] [address], [place] Chloride [Moles/Vol] 103 mmol/L Normal 98-107 [facility] Comment on above: Order Comment: No: D o not add to previous draw Performed By: #### 0 0071, [id number] #### [facility] [address] [place] [address], [place] CO2 [Moles/Vol] 21 mmol/L Normal 21-31 [facility] Comment on above: Order Comment: No: D o not add to previous draw Performed By: #### 0 0071, [id number] #### [facility] [address] [place] [address], [place] Creatinine [Mass/Vol] 0.82 mg/dL Normal 0.60-1.20 [facility] Comment on above: Order Comment: No: D o not add to previous draw Performed By: #### 0 0071, [id number] #### [facility] [address] [place] [address], [place] GFR/1.73 sq M.predicted among blacks MDRD (S/P/Bld) [Vol rate/Area] mL/min/{1.73_m2} Normal >60 [facility] [place] [facility] Comment on above: Order Comment: No: D o not add to previous draw Performed By: #### 0 0071, [id number] #### [facility] [address] [place] [address], [place] GFR/1.73 sq M.predicted among non-blacks MDRD (S/P/Bld) [Vol rate/Area] mL/min/{1.73_m2} Normal >60 [facility] [place] [facility] Comment on above: Order Comment: No: D o not add to previous draw Performed By: #### 0 0071, [id number] #### [facility] [address] [place] [address], [place] Glucose [Mass/Vol] 105 mg/dL High 70-100 [facility] Comment on above: Order Comment: No: D o not add to previous draw Performed By: #### 0 0071, 99530 #### [facility] [address] [place] [address], [place] Potassium [Moles/Vol] 4.4 mmol/L Normal 3.5-5.1 [facility] Comment on above: Order Comment: No: D o not add to previous draw Performed By: #### 0 0071, [id number] #### [facility] [address] [place] [address], [place] Sodium [Moles/Vol] 134 mmol/L Low 136-145 [facility] Comment on above: Order Comment: No: D o not add to previous draw Performed By: #### 0 0071, [id number] #### [facility] [address] [place] [address], [place] Urea nitrogen [Mass/Vol] 14 mg/dL Normal 7-25 [facility] Comment on above: Order Comment: No: D o not add to previous draw Performed By: #### 0 0071, [id number] #### [facility] [address] [place] [id number], [place] CBC COMPLETE BLOOD COUNTon 0 02-18-2021 Erythrocyte distribution width (RBC) [Ratio] 13.9 % Normal 11.5-15.0 [facility] Comment on above: Order Comment: No: D o not add to previous draw Performed By: #### 5 0608 #### [facility] [address] [place] [address], [place] Hematocrit (Bld) [Volume fraction] 49.3 % High 36.0-45.0 [facility] Comment on above: Order Comment: No: D o not add to previous draw Performed By: #### 5 0608 #### [facility] [address] [place] [address], [place] Hemoglobin (Bld) [Mass/Vol] 14.6 g/dL Normal 12.0-15.0 [facility] Comment on above: Order Comment: No: D o not add to previous draw Performed By: #### 5 0608 #### [facility] [address] [facility] [address], [place] MCH (RBC) [Entitic mass] 28.8 pg Normal 27.0-33.0 [facility] Comment on above: Order Comment: No: D o not add to previous draw Performed By: #### 5 0608 #### [facility] [address] MCHC (RBC) [Mass/Vol] 29.6 g/dL Low 32.0-35.0 [facility] Comment on above: Order Comment: No: D o not add to previous draw Performed By: #### 5 0608 #### [facility] [address] [facility] [place] [address], [place] MCV (RBC) [Entitic vol] 97.2 fL Normal 82.0-98.0 [facility] Comment on above: Order Comment: No: D o not add to previous draw Performed By: #### 5 0608 #### [facility] [address] Nucleated RBC/100 WBC (Bld) [Ratio] 0 % Normal 0-0 [facility] Comment on above: Order Comment: No: D o not add to previous draw Performed By: #### 5 0608 #### [facility] [address] [place] [address], [place] PLAT CNT 265 10*3/uL Normal 150-400 [facility] Comment on above: Order Comment: No: D o not add to previous draw Performed By: #### 5 0608 #### [facility] [address] RBC (Bld) [#/Vol] 5.07 10*6/uL High 3.80-5.00 [facility] Comment on above: Order Comment: No: D o not add to previous draw Performed By: #### 5 0608 #### [facility] [address] [place] [address], [place] WBC (Bld) [#/Vol] 15.71 10*3/uL High 4.00-10.60 [facility] Comment on above: Order Comment: No: D o not add to previous draw Performed By: #### 5 0608 #### [facility] [address] [facility]. [address] MAGNESIUM BLOODon 02-18-2021 Magnesium [Mass/Vol] 1.8 mg/dL Low 1.9-2.7 [facility] Comment on above: Order Comment: No: D o not add to previous draw Performed By: #### 0 0071, [id number] #### [facility] [address] [facility]. [address] *MRSA/MSSA DNA NASALon 02-17 *MRSA/MSSA DNA NASAL Clinical Report: (D) Specimen: NASAL SWAB Collected: 02/17/2021 01:23 Status: Final Last Updated: 02/17/2021 16:04 (1) No collection time noted on specimen or requisition. The collection time recorded is the time of receipt in the lab. MSSA DNA (Final) Negative MRSA DNA (Final) Negative Normal [facility] Comment on above: Order Comment: No co llection time noted on specimen or requisition. The collection time recorded is the time of receipt in the lab. Performed By: #### 3 [id number] #### [facility] [address] [facility]. [address] Operative Reporton Operative Report MR#: [id number] S [facility] Pt. Name: Steph Edwards Room #: PAT Discharge Date: Birthdate: 1960 OPERATIVE REPORT DATE OF SURGERY: 02/17/2021 SURGEON: Leila Lazaro M.D. Attending: Leila Lazaro M.D. Date of Surgery: February 17, 2021 Dct By: Leila Lazaro M.D. PCP Phys: SURGEON: Leila Lazaro M.D. Electrophonic Engineer: Jc Lazaro M.D. PREOPERATIVE DIAGNOSIS: Large hiatal hernia, gasreoesophageal reflux disease, morbid obesity POSTOPERATIVE DIAGNOSIS: Same OPERATION PERFORMED: Laparoscopic hiatal hernia repair, Gage fundoplicaton, EGD ANESTHESIA: General anesthesia INDICATIONS: The patient is a 60-year-old morbid obesity white female with a large hiatal hernia, gastroesophageal reflux disease. Laparoscopic hiatal hernia repair, Gage fundoplication was offered to the patient, informed consent was obtained. The risk of the surgery include, but not limited to infection, bleeding, recurrence, gastric or esophageal injury, dysphagia, heart attack and stroke. Patient expressed understanding, agreed to proceed. I written informed consent was also obtained. Because of a qualified resident assistant cna is not available, Dr. Jc Lazaro M.D. was requested for assist the surgery. The patient has more than 60% of the stomach herniated in the hiatus, she has morbid obesity and she need intraoperative upper endoscopy and a bougie placement. Procedure Details The patient was seen again in the Holding Room. The risks, benefits, complications, treatment options, and expected outcomes were discussed with the patient. The risk of the surgery include, but not limited to infection, bleeding, perforation, dysphagia, recurrence, heart attack, thromboembolism. Patient expressed understanding, agreed to proceed. There was concurrence with the proposed plan and informed consent was obtained. The site of surgery was properly noted/marked. The patient was taken to Operating Room, identified as Steph Edwards and the procedure verified as laparoscopic hiatal hernia repair and the Gage fundoplication. A Time Out was held and the above information confirmed. The patient was placed in the supine position and general anesthesia was induced, Venodyne boots, and a Skinner catheter. The abdomen was prepped and draped in a sterile fashion. A 5 mm left paraumbilical incision was made with #15 scalpel and the peritoneal cavity was accessed using 5 mm Optiview trocar under direct visualization. The pneumoperitoneum was then established to steady pressure of 12 mmHg. A 5 mm Optiview trocarwas placed through the supraumbilical incision. Additional 5 mm cannulas then placed in the right subcostal and subxyphoid under direct vision. A 12 Blackburn trocar was inserted through left subcostal abdominal wall under direct visualization. A careful evaluation of the entire abdomen was carried out. The patient was placed in reversed Trendelenburg position. Snake retractor was inserted through the right subcostal trocar into peritoneal cavity then retracted left lobe of the liver superiorly to visualize the hiatus. We noticed that more than 60% of the stomach herniated into the hiatus. With Harmonic scalpel, gastrohepatic ligament was divided, Right crura was dissected, hernia sac was from the right crura, then advanced to anterior crura dissection. Then short gastric vessels were devided with Harmonic scalpel, then advanced to dissect free of the angle of His. Left crura dissection was performed. Distal esophagus was dissected. Quarter-inch Minot drain was placed into peritoneal cavity and go around the GE junction as a retraction. The distal esophagus was further dissected, more than 6 cm of the distal esophagus was dissected into the peritoneal cavity. Vagus nerve was identified and carefully protected. 54 Yemeni bougie was placed through the mouth into esophagus then advanced under laparoscopy pass the GE junction into the stomach without causing perforation. Hiatal hernia repaired by interrupted 1-0 Surgidac Endo Stitch approximate the left and the right crura with pledget. 2 interrupted sutures were placed behind the esophagus. One interrupted suture was placed anterior to the esophagus the new established hiatus loosely around the esophagus with 54 Yemeni bougie. Gage fundoplication: was performed after completion of hiatal hernia repair. A retraction suture was placed on the posterior wall of the fundus of the stomach. The suture was introduced behind the GE junction from left side to the right. The posterior wall of the fundus of the stomach was brought from left side to right side behind the GE junction, which meet with the anterior wall of the fundus on the right anterior aspect of the GE junction. A 360 degree Gage fundoplication was fashioned with the 3 interrupted 1-0 Surgidac Endo Stitch, each stitch also include anterior wall of muscular layer (more content not included)... Normal [facility] POC GLUCOSE LABon 02-17-2021 Glucose [Mass/Vol] 110 mg/dL High 70-100 [facility] Comment on above: Performed By: #### [id number] #### [facility] [place] [address], [facility] 10-20-2020 L ---- Specimen: [id number] Received: 10/20/20 Status: TABITHAStephanie Rehana Num: [id number] Spec Type: Surgical Subm Dr: Gavin Rosado DO Tissues: A Gastric Biopsy (GASTRIC ANTRUM BX) Procedures: HE Stain/2, Gross/Micro L4 Patient Age/Sex Location Account Attending Physician Steph Edwards/Fredo ACEVEDO [id number] Gavin Rosado DO SPEC NUM: [id number] RECD: 10/20/20 STATUS: AYAKA KIMBALL NUM: [id number] GERONIMO: 10/20/[address] [facility] [address]: Gavin Rosado DO ENTERED: 10/20/[address] [facility] [address]: Malcolm Hernandez [facility] SPEC TYPE: Surgical DEPT: S ORDERED: HE Stain/2, Gross/Micro L4 ORDERED: HE Stain/2, Gross/Micro L4 Pathological Diagnosis Stomach, antrum, biopsy: - Mild chronic inactive gastritis - Negative for H. pylori microorganisms Clinical Information Hiatal hernia, nausea, abdominal pain Gross Description Received in formalin labeled with the patient's name, number and gastric antrum biopsy test for H. pylori is a 0.4 cm perez tissue fragment. Entirely submitted in one cassette labeled A1. (/JUAN) Microscopic Description Two glass slides with H E stained material have been examined. The microscopic findings support the above pathologic diagnosis. Immunohistochemical stain for H. pylori, with appropriate controls, has been requested and examined after reviewing H E sections. The H. pylori stain is negative for microorganisms. [id number], [id number] The use of one or more reagents in the above tests is regulated as an analyte specific reagent (ASR). The performance characteristics were determined by the [facility] of [facility]. Immunohistochemistry assays have not been validated on Specimen: [id number] Received: 10/20/20 Status: AYAKA Kimball Num: [id number] Spec Type: Surgical Subm Dr: Gavin oRsado DO Tissues: A Gastric Biopsy (GASTRIC ANTRUM BX) Procedures: HE Stain/2, Gross/Micro L4 Patient: Steph Edwards [id number] (Continued) Specimen: [id number] Received: 10/20/20 (Continued) Microscopic Description (Continued) Signed (signature on file) Madeleine Xie MD 10/21/20 1631 Specimen: [id number] Received: 10/20/20 Status: AYAKA Kimball Num: [id number] Spec Type: Surgical Subm Dr: Gavin Rosado DO Tissues: A Gastric Biopsy (GASTRIC ANTRUM BX) Procedures: HE Stain/2, Gross/Micro L4 Patient: Steph Edwards [id number] (Continued) Specimen: [id number] Received: 10/20/20 (Continued) Microscopic Description (Continued) decalcified tissue. Results should be interpreted with caution given the possibility of false negative results on decalcified specimens. They have not been cleared by the US Food and Drug Administration. The FDA has determined that such clearance or approval is not necessary. Specimen: [id number] Received: 10/20/20 Status: AYAKA Kimball Num: [id number] Spec Type: Surgical Subm Dr: Gavin Rosado DO Tissues: A Gastric Biopsy (GASTRIC ANTRUM BX) Procedures: HE Stain/2, Gross/Micro L4 Patient: Steph Edwards [id number] ([facility]) Signed (signature on file) Madeleine Xie MD 10/21/20 1631 [facility] Vital Signs Date Time Vital Sign Value Performing Clinician Junior fajardo 05-19-2024 13:28-0500 Diastolic blood pressure 96 mm[Hg] [facility] Work Phone: [facility] 05-19-2024 13:28-0500 Heart rate 92 /min [facility] Work Phone: [facility] 05-19-2024 13:28-0500 SaO2% (BldA) [Mass fraction] 96 % [place] Aparna DO Work Phone: [facility] 05-19-2024 13:28-0500 Systolic blood pressure 158 mm[Hg] [facility] Work Phone: [facility] 04-09-2024 13:53-0400 Body height 154.9 cm Jaun Burnett [employer] Work Phone: [facility] 04-09-2024 13:53-0400 Body mass index (BMI) [Ratio] 42.14 kg/m2 aJun Burnett [employer] Work Phone: [facility] 04-09-2024 13:53-0400 Body weight 101.15 kg Jaun Burnett [employer] Work Phone: [facility] 04-09-2024 13:53-0400 Diastolic blood pressure 90 mm[Hg] Jaun Burnett [employer] Work Phone: [facility] 04-09-2024 13:53-0400 Heart rate 89 /min Jaun Burnett [employer] Work Phone: [facility] 04-09-2024 13:53-0400 Systolic blood pressure 175 mm[Hg] Jaun Burnett [employer] Work Phone: [facility] 02-26-2024 13:41-0400 Diastolic blood pressure 86 mm[Hg] Tj Frankett DO Work Phone: [facility] 02-26-2024 13:41-0400 Heart rate 83 /min Christopher Aparna DO Work Phone: [facility] 02-26-2024 13:41-0400 SaO2% (BldA) [Mass fraction] 99 % Christlive Frankett DO Work Phone: [facility] 02-26-2024 13:41-0400 Systolic blood pressure 133 mm[Hg] Geter Aparna DO Work Phone: [facility] 02-13-2024 13:44-0400 Body height 154.9 cm Dory Marin PA Work Phone: [facility] 02-13-2024 13:44-0400 Body mass index (BMI) [Ratio] 41.57 kg/m2 Dory Marin PA Work Phone: [facility] 02-13-2024 13:44-0400 Body weight 99.79 kg Dory Marin PA Work Phone: [facility] 02-13-2024 13:44-0400 Diastolic blood pressure 82 mm[Hg] Dory Marin PA Work Phone: [facility] 02-13-2024 13:44-0400 Heart rate 79 /min Dory Marin PA Work Phone: [facility] 02-13-2024 13:44-0400 Respiratory rate 16 /min Dory Marin PA Work Phone: [facility] 02-13-2024 13:44-0400 SaO2% (BldA) [Mass fraction] 97 % Dory BAUER Work Phone: [facility] [place] 02-13-2024 13:44-0400 Systolic blood pressure 122 mm[Hg] Dory BAUER Work Phone: [facility] 02-06-2022 17:15-0400 Body height 156.21 cm Mirian Schwerer Other [employer] Other 02-06-2022 17:15-0400 Body mass index (BMI) [Ratio] 35.78 kg/m2 Mirian Schwerer Other [employer] Other 02-06-2022 17:15-0400 Body temperature 96.9 [degF] Mirian Schwerer Other [employer] Other 02-06-2022 17:15-0400 Body weight 87.32 kg Mirian Schwerer Other [employer] Other 02-06-2022 17:15-0400 Diastolic blood pressure 80 mm[Hg] Mirian Schwerer Other [employer] Other 02-06-2022 17:15-0400 Respiratory rate 18 /min Mirian Schwerer Other [employer] Other 02-06-2022 17:15-0400 SaO2% (BldA) [Mass fraction] 98 % Mirian Schwerer Other [employer] Other 02-06-2022 17:15-0400 Systolic blood pressure 128 mm[Hg] Mirian Schwerer Other [employer] Other Encounters Encounter Date Encounter Type Care Provider Facility Start: 07-07-2024 End: 07-07-2024 ambulatory IVETTE MAN Facility:[facility] Start: 05-28-2024 End: 05-28-2024 ambulatory IVETTE MAN Facility:[facility] Start: 05-19-2024 End: 05-19-2024 Bamboo flowsheet Tj Frankett DO Work Phone: [facility] [place] [facility] Start: 05-19-2024 End: 05-19-2024 Bamboo flowsheet Tj Frankett DO Work Phone: [facility] [place] [facility] Start: 05-19-2024 End: 05-19-2024 Patient encounter procedure Tj Braun DO Work Phone: [facility] [place] [facility] Comment on above: Lumbar radiculopathy (Primary Dx); Lumbosacral radiculopathy Start: 05-19-2024 End: 05-19-2024 ambulatory TJ BRAUN Not Available Start: 04-09-2024 End: 04-09-2024 Bamboo flowsheet Jaun C Windnagel [employer] Work Phone: [facility] [place] [facility] Start: 04-09-2024 End: 04-09-2024 Bamboo flowsheet Jaun C Alyssanagel [employer] Work Phone: [facility] [place] [facility] Start: 04-09-2024 End: 04-09-2024 Office outpatient visit 25 minutes Jaun C Alyssanagel [employer] Work Phone: [facility] [place] [facility] Comment on above: Lumbar radiculopathy ; Nonintractable headache, unspecified chronicity pattern, unspecified headache type Start: 04-09-2024 End: 04-09-2024 ambulatory JAUN C WINDNAGEL Not Available Start: 02-26-2024 End: 02-26-2024 Bamboo flowsheet Tj Frankett DO Work Phone: [facility] [place] [facility] Start: 02-26-2024 End: 02-26-2024 Bamboo flowsheet Tj Braun DO Work Phone: [facility] Start: 02-26-2024 End: 02-26-2024 Patient encounter procedure Sallive Aparna DO Work Phone: [facility] Comment on above: Lumbar radiculopathy (Primary Dx); DDD (degenerative disc disease), lumbar; Lumbar back pain; Lumbosacral radiculopathy Start: 02-26-2024 End: 02-26-2024 ambulatory TJ BRAUN Not Available Start: 02-13-2024 End: 02-13-2024 Bamboo flowsheet Dory BAUER Work Phone: [facility] Start: 02-13-2024 End: 02-13-2024 Andersonboo flowsheet Dory BAUER Work Phone: [facility] Start: 02-13-2024 End: 02-13-2024 ambulatory DORY MARIN Not Available Start: 02-13-2024 End: 02-13-2024 Office outpatient visit 25 minutes Dory BAUER Work Phone: [facility] Comment on above: DDD (degenerative di sc disease), lumbar (Primary Dx); Lumbar back pain; Lumbar radiculopathy; DDD (degenerative disc disease), cervical; Cervical radiculopathy; Neck pain; Chronic tension-type headache, not intractable Start: 11-19-2023 End: 11-19-2023 ambulatory IVETTE MAN Facility:[facility] Start: 11-14-2023 End: 11-14-2023 ambulatory IVETTE MAN Facility:[facility] Start: 11-06-2023 End: 11-06-2023 ambulatory TJ BRAUN Not Available Start: 10-23-2023 End: 10-23-2023 ambulatory DORY MARIN Not Available Start: 10-30-[address] DOCTOR COOK Facility : Start: 04-05-2022 End: 04-06-[address] DOCTOR COOK Facility: Start: 02-06-2022 End: 02-06-2022 ambulatory Mirian Ragsdale Other [employer] Other Start: 02-06-2022 Office outpatient vi sit 10 minutes Mirian Schwerer [facility] Start: 12-18-2021 End: 12-18-2021 ambulatory Mirian Schwerer Other [employer] Other Start: 12-18-2021 Telephone encounter Mirian Schwerer [facility] Start: 12-14-2021 End: 12-15-2021 ambulatory DORY SHIRA Facility:[facility] Start: 12-07-2021 End: 12-07-[address] LUNA [facility] Facility:[facility] Start: 12-04-2021 End: 12-04-2021 ambulatory Blair Mary Other [employer] Other Start: 12-04-2021 Telephone encounter Blair Mary [facility] Start: 11-13-2021 ambulatory DORY SHIRA Facility:[facility] Start: 11-03-2021 End: 11-03-2021 ambulatory Blair Mary Other [employer] Other Start: 11-03-2021 Telephone encounter Blair Mary [facility] Start: 10-19-2021 End: 10-19-2021 ambulatory Blair Mary Other [employer] Other Start: 10-19-2021 Telephone encounter Blair Mary [facility] Start: 10-13-2021 End: 10-13-2021 ambulatory Mirian Schwerer Other [employer] Other Start: 10-13-2021 Telephone encounter Mirian Schwerer [facility] Start: 09-22-2021 End: 09-22-2021 ambulatory Mirian Schwerer Other [employer] Other Start: 04-15-2022 Telephone encounter Mirian Schwerer [facility] Start: 09-21-2021 End: 09-21-2021 ambulatory Mirian Ragsdale Other [employer] Other Start: 09-21-2021 Telephone encounter Mirian Ragsdale [facility] Start: 09-19-2021 End: 09-19-2021 ambulatory Mirian Ragsdale Other [employer] Other Start: 09-19-2021 Telephone encounter Mirian Ragsdale [facility] Start: 02-17-2021 End: 02-18-2021 Evaluation and management of inpatient REFERRED SELF Facility:[facility] Procedures Date Procedure Procedure Detail Performing Clinician Start: 02-13-2024 [facility] POI NT INJECTION Dory BAUER Work Phone: Start: 02-17-2021 REPAIR DIAPHRAGM, PERCUTANEOUS ENDOSCOPIC APPROACH JIANLIN LAZARO Start: 02-17-2021 RESTRICTION OF ESOPHAGOGASTRIC JUNCTION, PERC ENDO APPROACH JIANLIN LAZARO Plan of Treatment Date Care Activity Detail Author Start: 09-09-2024 End: 09-09-2024 Patient encounter procedure 09/09/2024 1:15 PM EDT Office Visit [facility] [place] [facility] [address] [place] [address] Tj Braun DO [address] [place], [place] [id number] [facility] [place] [facility] Start: 08-24-2024 End: 08-24-2024 Patient encounter procedure 08/24/2024 2:40 PM EDT Office Visit [facility] [place] [facility] [address] [place] [address] Dory Marin PA [address] [place] [id number] [facility] [place] [facility] Start: 05-26-2024 End: 05-19-2025 Nerve Block Nerve Block Procedures Routine Lumbosacral radiculopathy Lumbar radiculopathy Expected: 05/26/2024 (Approximate), Expires: 05/19/2025 [facility] Work Phone: Comment on above: Expected: 05/26/2024 (Approximate), Expires: 05/19/2025 Start: 05-19-2024 End: 05-19-2024 Patient encounter procedure [facility] [place] [facility] Comment on above: Arrived Start: 2024 Pneumococcal Vaccine : 65+ Years (1 of 1 - PCV) Pneumococcal Vaccine: 65+ Years (1 of 1 - PCV) [facility] Start: 04-09-2024 End: 04-09-2024 Patient encounter procedure [facility] [place] [facility] Comment on above: Arrived Start: 02-26-2024 End: 02-12-2025 Nerve Block Nerve Block Procedures Routine Lumbar radiculopathy Lumbosacral radiculopathy Expected: 02/26/2024 (Approximate), Expires: 02/12/2025 [facility] Work Phone: Comment on above: Expected: 02/26/2024 (Approximate), Expires: 02/12/2025 Start: 02-26-2024 End: 02-26-2024 Patient encounter procedure [facility] [place] [facility] Comment on above: Arrived Start: 02-13-2024 End: 02-12-2025 Nerve Block Nerve Block Procedures Routine DDD (degenerative disc disease), lumbar Lumbar back pain Lumbar radiculopathy Expected: 02/13/2024 (Approximate), Expires: 02/12/2025 [facility] Work Phone: Comment on above: Expected: 02/13/2024 (Approximate), Expires: 02/12/2025 Start: 02-09-2024 Influenza vaccination Influenza Vacc ine (#1) [facility] Start: 1999 Screening for malign ant neoplasm of breast Mammogram [facility] Start: 1989 Screening for malign ant neoplasm of cervix [facility] Start: 1980 Screening for malign ant neoplasm of cervix Pap Smear [facility] Start: 1959 Screening for malign ant neoplasm of colon [facility] Trigger Point Injection: right iliocostalis lumborum, left iliocostalis lumborum Trigger Point Injection: right iliocostalis lumborum, left iliocostalis lumborum Procedures Routine DDD (degenerative disc disease), lumbar Lumbar back pain 02/13/2024 2:30 PM EDT [facility] Immunizations Immunization Date Immunization Notes Care Provider Alexandro merino 09-08-2020 COVID-19 Vaccine Rosa Isela - Documentation Purposes Only Mirian Schwerer Other [employer] Other 03-21-2020 influenza, injectabl e, quadrivalent, preservative free Mirian Schwerer Other [employer] Other 03-21-2020 influenza virus vaccine, unspecified formulation Dory BAUER Work Phone: [facility] 02-17-2018 influenza, injectabl e, quadrivalent, preservative free Mirian Schwerer Other [employer] Other 02-07-2017 zoster vaccine, live Mirian Schwerer Other [employer] Other 03-18-2013 influenza virus vaccine, split virus (incl. purified surface antigen) Mirian Schwerer Other [employer] Other 03-21-2012 influenza virus vaccine, split virus (incl. purified surface antigen) Mirian Schwerer Other [employer] Other 04-05-2011 influenza virus vaccine, split virus (incl. purified surface antigen) Mirian Schwerer Other [employer] Other Payers Date Payer Category Payer Medicare (Managed Care) [employer] [id number] 2024 Medicare [id number] 2023 Self-pay 2023 Medicare AETNA MEDICARE A DVANTAGE AETNA MEDICARE REPLACEMENT [id number] 2023-Present [address] [place] [address] [id number] 2023 Private Health Insurance [id number] 2021 Unknown [id number] 2020 Unknown [id number] 2008 Medicare [id number] 2.16840.1.158629.19 1959 Unknown [id number] 2.840.1.666188.3.579.2. 647 1959 Unknown [id number] 2.840.1.133893.3.579.2. 593 1959 Unknown [id number] 2.16840.1.510409.3.579.2. 593 1959 Unknown [id number] 2.16840.1.328658.3.579.2. 593 1959 Unknown [id number] 2.16840.1.572789.3.579.2. 593 1959 Unknown [id number] 2.16840.1.186842.3.579.2. 593 1959 Unknown [id number] 2.16840.1.488366.3.579.2. 727 1959 Unknown [id number] 2.16.840.1.171911.3.579.2. 727 1959 Unknown [id number] 2.16.840.1.311090.3.579.2. 727 1959 Unknown [id number] 2.16.840.1.503845.3.579.2. 72 1959 Unknown [id number] 2.16.840.1.615914.3.579.2. 1259 1959 Unknown [id number] 2.16.840.1.505416.3.579.2. 1258 1959 Unknown [id number] 2.16.840.1.589666.3.579.2. 1259 1959 Unknown [id number] 2.16.840.1.562294.3.579.2. 125 1959 Unknown [id number] 2.16.840.1.945488.3.579.2. 1259 1959 Unknown [id number] 2.16.840.1.677378.3.579.2. 1259 1959 Unknown [id number] 2.16.840.1.430808.3.579.2. 727 1959 Unknown [id number] 2.16.840.1.128382.3.579.2. 72 1959 Unknown [id number] 2.16.840.1.877351.3.579.2. 727 Medicare [id number] 2.16.840.1.311296.19 Unknown [id number] 2.16.840.1.374569.19 Social History Date Type Detail Facility Unknown if ever smoked [employer] Other Start: 11-06-2023 End: 02-13-2024 Sex Assigned At [facility] Other Start: 09-23-2023 [facility] Start: 09-23-2023 Tobacco use and exposure Smokeless tobacco non-user [facility] Start: 11-06-2023 End: 02-13-2024 Alcoholic beverage intake Lifetime non-drinker (finding) [facility] Start: 11-06-2023 End: 02-13-2024 History of Social function [facility] Start: 09-23-2023 Alcohol Comment caffeine: none [facility] Start: 1960 Sex assigned at Not on file N [facility] Clinical Notes 02-19-2021 to 05-19-2024 Valerio Joseph, ARRT - 05/19/2024 1:45 PM Varsha Joseph, ARRT - 02/26/2024 1:45 PM EDT Note Date & Type Note Facility 05-19-2024 History of Presen t illness Narrative Reason for Appointment: Epidural Patient ID: Steph Edwards is a 64 y.o. female who presents for lumbar radiculopathy. Current Medications: has a current medication list which includes the following prescription(s): albuterol hfa, atorvastatin, esomeprazole, hydrochlorothiazide, levothyroxine, linaclotide, meclizine, meloxicam, oxcarbazepine, tizanidine, topiramate, and trazodone. Vitals: Visit Vitals BP (!) 158/96 Pulse 92 SpO2 96% Smoking Status Never Allergies: No Known Allergies EPIDURAL NOTE: Bilateral L5 Epidural Injection Fluoroscopic needle guidance REASON FOR PROCEDURE: Lumbar radiculopathy and radicular pain ALLERGIES: See allergy list above. Patient specifically denies contrast and shellfish allergy. MEDICATIONS INJECTED: 1ml of 0.25% Bupivacaine mixed with Dexamethasone (10mg/ml) 10mg total. LOCAL ANESTHETIC INJECTED: None CONTRAST: Omnipaque 300mgI/mL, 1 mL per each procedure site SEDATION MEDICATIONS: None TOPICAL ANESTHETIC: Ethyl Chloride spray ESTIMATED BLOOD LOSS: None COMPLICATIONS: None TECHNIQUE: If applicable, blood thinning medications were held according to SIS and BROCK guidelines. Time-out was taken to identify the correct patient, procedure, and side prior to starting the procedure. Lying in a prone position, the patient was prepped in the usual aseptic fashion. The appropriate site was identified under fluoroscopy. A 22 gauge needle was then introduced and the Right L5 foramen was negotiated under direct intermittent fluoroscopy. Lateral view was obtained to confirm needle placement and depth. Negative aspiration confirmed no blood and no CSF return. In the AP view 1 ml of Omnipaque 300mgI/mL contrast was injected and showed a good spread of the dye along the corresponding nerve root and through the foramen into the axillary recess of the epidural space without any vascular uptake. Then the 0.5ml of 0.25% Bupivacaine mixed with 0.5ml of Dexamethasone 10mg/ml was injected without adverse effect. The next appropriate site was identified under fluoroscopy. A 22 gauge needle was then introduced and the Left L5 foramen was negotiated under direct intermittent fluoroscopy. Lateral view was obtained to confirm needle placement and depth. Negative aspiration confirmed no blood and no CSF return. In the AP view 1 ml of Omnipaque 300mgI/mL contrast was injected and showed a good spread of the dye along the corresponding nerve root and through the foramen into the axillary recess of the epidural space without any vascular uptake. Then the 0.5ml of 0.25% Bupivacaine mixed with 0.5ml of Dexamethasone 10mg/ml was injected without adverse effect. The procedure was completed without complications and was tolerated well. The patient was monitored after the procedure. The patient (or responsible constitution party) was given post-procedure and discharge instructions to follow at home. The patient was discharged in stable condition. A follow-up appointment was made. The patient was instructed to avoid activities that would normally worsen the pain. Pre-procedure pain score: 6 /10 Shirt Finisher: RT Jordan(R) kVp: 103 Time (sec): 18 mA: 3.0 documented in this encounter [facility] 02-26-2024 History of Presen t illness Narrative Images from the original note were not included. Reason for Appointment: Epidural Patient ID: Steph Edwards is a 63 y.o. female who presents for lumbar radiculopathy. Current Medications: has a current medication list which includes the following prescription(s): albuterol hfa, atorvastatin, esomeprazole, hydrochlorothiazide, levothyroxine, linaclotide, meclizine, meloxicam, oxcarbazepine, tizanidine, tizanidine, topiramate, topiramate, and trazodone. Vitals: Visit Vitals BP 133/86 Pulse 83 SpO2 99% Smoking Status Never Allergies: No Known Allergies EPIDURAL NOTE: Bilateral L5 Epidural Injection Fluoroscopic needle guidance REASON FOR PROCEDURE: Lumbar radiculopathy and radicular pain ALLERGIES: See allergy list above. Patient specifically denies contrast and shellfish allergy. MEDICATIONS INJECTED: 1ml of 0.25% Bupivacaine mixed with Dexamethasone (10mg/ml) 10mg total. LOCAL ANESTHETIC INJECTED: None CONTRAST: Omnipaque 300mgI/mL, 1 mL per each procedure site SEDATION MEDICATIONS: None TOPICAL ANESTHETIC: Ethyl Chloride spray ESTIMATED BLOOD LOSS: None COMPLICATIONS: None TECHNIQUE: If applicable, blood thinning medications were held according to SIS and BROCK guidelines. Time-out was taken to identify the correct patient, procedure, and side prior to starting the procedure. Lying in a prone position, the patient was prepped in the usual aseptic fashion. The appropriate site was identified under fluoroscopy. A 22 gauge needle was then introduced and the Right L5 foramen was negotiated under direct intermittent fluoroscopy. Lateral view was obtained to confirm needle placement and depth. Negative aspiration confirmed no blood and no CSF return. In the AP view 1 ml of Omnipaque 300mgI/mL contrast was injected and showed a good spread of the dye along the corresponding nerve root and through the foramen into the axillary recess of the epidural space without any vascular uptake. Then the 0.5ml of 0.25% Bupivacaine mixed with 0.5ml of Dexamethasone 10mg/ml was injected without adverse effect. The next appropriate site was identified under fluoroscopy. A 22 gauge needle was then introduced and the Left L5 foramen was negotiated under direct intermittent fluoroscopy. Lateral view was obtained to confirm needle placement and depth. Negative aspiration confirmed no blood and no CSF return. In the AP view 1 ml of Omnipaque 300mgI/mL contrast was injected and showed a good spread of the dye along the corresponding nerve root and through the foramen into the axillary recess of the epidural space without any vascular uptake. Then the 0.5ml of 0.25% Bupivacaine mixed with 0.5ml of Dexamethasone 10mg/ml was injected without adverse effect. The procedure was completed without complications and was tolerated well. The patient was monitored after the procedure. The patient (or responsible constitution party) was given post-procedure and discharge instructions to follow at home. The patient was discharged in stable condition. A follow-up appointment was made. The patient was instructed to avoid activities that would normally worsen the pain. Pre-procedure pain score: 6 /10 Shirt Finisher: RT Jordan(R) kVp: 103 Time (sec): 17 mA: 3.0 documented in this encounter [facility] 02-06-2022 Evaluation note Encounter Date Diagnosis Assessment Notes Jan, Lumbar spondylosis (ICD-10 - M47.816) has low back pain that is chronic. she is here today to discuss getting a service dog. so her dog can go everywhere with her. i did discuss with her she can register her dog online and i do not think i have anything to do with it. she will try that. she is encouraged to get labs done that were ordered at last visit. [employer] Other 07-11-2022 Evaluation note* Encounter Date Diagnosis Assessment Notes Treatment Notes Treatment Clinical Notes Dec, Hypertension (ICD-10 - I10) [employer] Other 06-30-2022 NotePROCEDURE: CT LSPINE WO CON COMPARISON: None. HISTORY: DORSALGIA, UNSPECIFIED TECHNIQUE: Axial, Coronal, and Sagittal CT images obtained without IV contrast. Dose reduction techniques were achieved by using automated exposure control and/or adjustment of mA and/or kV according to patient size and/or use of iterative reconstruction technique. FINDINGS: PARASPINAL AREA: Normal with no visible mass. DISCS: Multilevel disc space narrowing most significant at L2-L3 with endplate sclerosis and vacuum disc. Posterior disc protrusions with possible herniations L3-L4 and L4-L5 BONES: Normal alignment of the lumbar vertebral bodies with no acute fracture or spondylolisthesis. Mild to moderate degenerative changes with spondylosis and facet osteoarthropathy OTHER: Moderate diffuse atherosclerosis IMPRESSION: Moderate degenerative changes Suspected disc herniations L4 and L4-L5. Consider MRI follow-up Electronically authenticated by: JOHNNY YAÑEZ Date: 2021-12-07 14:[address] [place], [place] [id number] Evaluation note* Encounter Date Diagnosis Assessment Notes Treatment Notes Treatment Clinical Notes October, Attention-deficit hyperactivity disorder, unspecified type (ICD-10 - F90.9) [employer] Other 05-12-2022 Evaluation note* Encounter Date Diagnosis Assessment Notes Treatment Notes Treatment Clinical Notes October, Attention-deficit hyperactivity disorder, unspecified type (ICD-10 - F90.9) [employer] Other 04-15-2022 Evaluation note* Encounter Date Diagnosis Assessment Notes Treatment Notes Treatment Clinical Notes Sep, Essential hypertension (ICD-10 - I10) [employer] Other 04-14-2022 Evaluation note* Encounter Date Diagnosis Assessment Notes Treatment Notes Treatment Clinical Notes Sep, Breast cancer screening by mammogram (ICD-10 - Z12.31) [employer] Other 04-12-2022 Evaluation note* Encounter Date Diagnosis Assessment Notes Treatment Notes Treatment Clinical Notes Sep, Mixed hyperlipidemia (ICD-10 - E78.2) [employer] Other 09-12-2021 NoteMR#: [id number] I [facility] Pt. Name: Steph Edwards Admitted: 02/17/2021 Discharged: 02/18/2021 Date of : 1960 Physician: Leila Lazaro M.D. DISCHARGE SUMMARY PRINCIPAL DIAGNOSES: Hiatal hernia, gastroesophageal reflux disease. SECONDARY DIAGNOSIS: Morbid obesity. PROCEDURE PERFORMED: Hiatal hernia repair with Gage fundoplication. SUMMARY OF HOSPITAL COURSE: The patient is a 60-year-old morbidly obese female with a large hiatal hernia with reflux disease, laparoscopic hiatal hernia repair, Gage fundoplication was offered to the patient and informed consent was obtained. Risks of the surgery were explained to the patient and she agreed to the procedure. Surgery was performed electively on 02/17/2021 without complications and the patient was admitted for 1 night for observation. The patient today is doing good, tolerating liquid diet with no nausea, no vomiting. Pain is under control with oral medication. The patient will be discharged home and will be followed up in the clinic in 1-[address] Leila Lazaro. All questions and concerns were appropriately addressed prior to discharge. The patient condition at discharge was stable. DISCHARGE DISPOSITION: Home. DISCHARGE INSTRUCTIONS: Continue liquid diet only. No solid food until followup appointment. Follow up with Dr. Rolf Lazaro in 2 weeks. Call office to schedule/confirm appointment. Avoid taking pills, especially if they are large. Small pills are okay. Resume home medications. Pain and antiemetic medication prescribed during discharge as needed. The patient may shower and wash wounds with water and soap. No driving while taking narcotic medications. Electronically Signed by: Leila Lazaro M.D. 02/20/2021 03:10 P Leila Lazaro M.D. I personally saw this patient on the day of the encounter, performed the garcia portion(s) of the service and participated in the management and confirm the resident's documentation. Please note there may be an additional personal documentation from me. Date Dict: 02/18/2021/05:34 P/Ortega Peacock MD Date Trans: 02/19/2021 12:06 Eunice/damien [id number] [facility] [employer] Other Evaluation note* Diagnosis Lumbar radiculopathy Thoracic or lumbosacral neuritis or radiculitis, unspecified Nonintractable headache, unspecified chronicity pattern, unspecified headache type documented in this encounter [facility] Healthcare[facility]* Diagnosis Lumbar radiculopathy- Primary Thoracic or lumbosacral neuritis or radiculitis, unspecified DDD (degenerative disc disease), lumbar Degeneration of lumbar or lumbosacral intervertebral disc Lumbar back pain Lumbago Lumbosacral radiculopathy Thoracic or lumbosacral neuritis or radiculitis, unspecified documented in this encounter [facility]* Diagnosis Lumbar radiculopathy- Primary Thoracic or lumbosacral neuritis or radiculitis, unspecified Lumbosacral radiculopathy Thoracic or lumbosacral neuritis or radiculitis, unspecified documented in this encounter [facility]* Diagnosis DDD (degenerative disc disease), lumbar- Primary Degeneration of lumbar or lumbosacral intervertebral disc Lumbar back pain Lumbago Lumbar radiculopathy Thoracic or lumbosacral neuritis or radiculitis, unspecified DDD (degenerative disc disease), cervical Degeneration of cervical intervertebral disc Cervical radiculopathy Brachial neuritis or radiculitis nos Neck pain Cervicalgia Chronic tension-type headache, not intractable Chronic tension type headache documented in this encounter [facility] Narrative - Reported* Type Description Date Medical History hypertension Medical History hyperlipidemia Medical History hypothyroidism Medical History GERD Medical History ADHD Medical History asthma Medical History obesity Medical History osteoporosis Medical History hx/o Nepali measles as a child Medical History peripheral neuropathy Medical History Major depressive disorder Medical History seasonal allergies Surgical History Breast reduction Surgical History hysterectomy Surgical History colonoscopy Surgical History [facility]stom[facility] 02/2020 Hospitalization History see above Hospitalization History [facility] 02/2019 [employer] Other Summary Purpose Family History No Family History Records FoundNo Family History Records FoundNo Family History Records FoundNo Family History Records FoundNo Family History Records FoundNo Family History Records FoundNo Family History Records FoundNo Family History Records FoundNo Family History Records FoundNo Family History Records FoundNo Family History Records FoundNo Family History Records FoundNo Family History Records FoundNo Family History Records FoundNo Family History Records FoundNo Family History Records FoundNo Family History Records FoundNo Family History Records FoundNo Family History Records FoundNo Family History Records FoundNo Family History Records FoundNo Family History Records FoundNo Family History Records FoundNo Family History Records FoundNo Family History Records FoundNo Family History Records FoundNo Family History Records FoundNo Family History Records FoundNo Family History Records Found Advance Directives No Advanced Directives Records FoundNo Advanced Directives Records FoundNo Advanced Directives Records FoundNo Advanced Directives Records FoundNo Advanced Directives Records FoundNo Advanced Directives Records FoundNo Advanced Directives Records FoundNo Advanced Directives Records FoundNo Advanced Directives Records FoundNo Advanced Directives Records FoundNo Advanced Directives Records FoundNo Advanced Directives Records FoundNo Advanced Directives Records FoundNo Advanced Directives Records FoundNo Advanced Directives Records FoundNo Advanced Directives Records FoundNo Advanced Directives Records FoundNo Advanced Directives Records FoundNo Advanced Directives Records FoundNo Advanced Directives Records FoundNo Advanced Directives Records FoundNo Advanced Directives Records FoundNo Advanced Directives Records FoundNo Advanced Directives Records FoundNo Advanced Directives Records FoundNo Advanced Directives Records FoundNo Advanced Directives Records FoundNo Advanced Directives Records FoundNo Advanced Directives Records Found Reason for Referral Specialty Diagnoses / Procedures Referred By Contac t Referred To Contact Neurology Diagnoses DDD (degenerative disc disease), lumbar Lumbar back pain Lumbar radiculopathy Procedures Nerve Block Dory Marin PA [address] [place] [address] Referral ID Status Reason Start Date Expiration Date V isits Requested Visits Authorized [id number] Authorized 02/13/2024 08/11/2024 1 1 Specialty Diagnoses / Procedures Referred By Contac t Referred To Contact Diagnoses DDD (degenerative disc disease), lumbar Lumbar back pain Procedures Trigger Point Injection: right iliocostalis lumborum, left iliocostalis lumborum Dory Marin PA [address] [place] [address] Referral ID Status Reason Start Date Expiration Date V isits Requested Visits Authorized [id number] Incomplete 02/13/2024 08/11/2024 1 1 Specialty Diagnoses / Procedures Referred By Contac t Referred To Contact Neurology Diagnoses Lumbar radiculopathy Lumbosacral radiculopathy Procedures Nerve Block Nerve Block Tj Braun DO [address] [place] [address] Referral ID Status Reason Start Date Expiration Date Visits Re quested Visits Authorized [id number] Closed 02/13/2024 08/11/2024 1 1 Additional Source Comments INFORMATION SOURCE (unrecogn ized section and content) DATE CREATED AUTHOR 07/23/2021 [facility] DATE CREATED AUTHOR AUTHOR'S ORGANIZ ATION 12/30/2021 [facility] DATE CREATED AUTHOR AUTHOR'S ORGANIZ ATION 10/24/2022 [facility] DATE CREATED AUTHOR AUTHOR'S ORGANIZ ATION 11/17/2023 [facility] DATE CREATED AUTHOR AUTHOR'S ORGANIZ ATION 11/21/2023 [facility] DATE CREATED AUTHOR AUTHOR'S ORGANIZ ATION 11/22/2023 [facility] DATE CREATED AUTHOR AUTHOR'S ORGANIZ ATION 11/29/2023 [facility] DATE CREATED AUTHOR AUTHOR'S ORGANIZ ATION 12/12/2023 [facility] DATE CREATED AUTHOR AUTHOR'S ORGANIZ ATION 05/22/2024 [facility] DATE CREATED AUTHOR AUTHOR'S ORGANIZ ATION 06/02/2024 [facility] DATE CREATED AUTHOR AUTHOR'S ORGANIZ ATION 07/10/2024 [facility] DATE CREATED AUTHOR AUTHOR'S ORGANIZ ATION 07/15/2024 [facility] REASON FOR VISIT (unrecogniz ed section and content) Specialty Diagnoses / Procedures Referred By Vish t Referred To Contact Neurology Diagnoses Lumbar radiculopathy Lumbosacral radiculopathy Procedures Nerve Block Nerve Block Tj Braun DO [address] [address] Referral ID Status Reason Start Date Expiration Date Visits Re quested Visits Authorized [id number] Closed 02/13/2024 08/11/2024 1 1 Reason Comments Back Pain Neck Pain Care Teams (unrecognized sec tion and content) Commercial Lending Assistant Relationship Specialty Start Date End Date Mirian Ragsdale DO [address] [facility] [place] [address] PCP - General Family Medicine 09/18/23 Commercial Lending Assistant Relationship Specialty Start Date End Date Mirian Ragsdale DO [address] [facility] [place] [address] PCP - General Family Medicine 09/18/23 Commercial Lending Assistant Relationship Specialty Start Date End Date Mirian Ragsdale DO [address] [facility] [place] [address] PCP - General Family Medicine 09/18/23 Commercial Lending Assistant Relationship Specialty Start Date End Date Mirian Ragsdale DO [address] [place] [phone] PCP - [facility] 09/18/23 Commercial Lending Assistant Relationship Specialty Start Date End Date Mirian Ragsdale DO [address] [place] [phone] PCP - [facility] 09/18/23 Commercial Lending Assistant Relationship Specialty Start Date End Date Mirian Ragsdale DO [address] [place] [phone] PCP - [facility] 09/18/23 FOR RECORDS PERTAINING TO PATIENTS WHO ARE OR HAVE BEEN ENROLLED IN A CHEMICAL DEPENDENCY/SUBSTANCEABUSE PROGRAM, SOME INFORMATION MAY BE OMITTED. This clinical summary was aggregated from multiple sources. Caution should be exercised in using it in the provision of clinical care. This summary normalizes information from multiple sources, and as a consequence, information in this document may materially change the coding, format and clinical context of patient data. In addition, data may be omitted in some cases. CLINICAL DECISIONS SHOULD BE BASED ON THE PRIMARY CLINICAL RECORDS. [facility] [employer] [facility]. provides no warranty or guarantee of the accuracy or completeness of information in this document.
== END 2024-08-16 15:43 | disposition home or self-care (01) ==
PROVIDERS: Emergency Provider Emergency Medicine; PCP Nurse Practitioner Family
DX: H61.23 Impacted cerumen, bilateral (principal); H60.93 Unspecified otitis externa, bilateral
CPT/HCPCS: 99283